=== PATIENT | female | born 1940 | race Caucasian/White ===

== ENCOUNTER 2017-06-11 15:00 | Inpatient (IN) | payer MEDICARE, BC ==
[2017-06-19] MEDS ORDERED: METOCLOPRAMIDE 10 MG TABLET PO ONE (14:00)
[2017-06-19] MEDS ORDERED: MECLIZINE 25 MG TABLET PO ONE (14:00)
[2017-06-19] MEDS ORDERED: FAMOTIDINE 20MG TABLET PO ONE (14:00)
[2017-06-19] MEDS ORDERED: ACETAMINOPHEN 1,000 MG/100 ML BTL IV ONE (14:00)
[2017-06-19] MEDS ORDERED: CEFAZOLIN 2 Gram 2 GM/50 ML BAG IVPB ONE (14:00)
[2017-06-20] MEDS ORDERED: ACETAMINOPHEN 1,000 MG/100 ML BTL IV ONE (06:00)
[2017-06-20] MEDS ORDERED: FAMOTIDINE 20MG TABLET PO ONE (06:00)
[2017-06-20] MEDS ORDERED: MECLIZINE 25 MG TABLET PO ONE (06:00)
[2017-06-20] MEDS ORDERED: METOCLOPRAMIDE 10 MG TABLET PO ONE (06:00)
[2017-06-20] MEDS ORDERED: CEFAZOLIN 2 Gram 2 GM/50 ML BAG IVPB ONE (06:00)
[2017-06-20] MEDS ORDERED: AL HYDROX/MAG HYDROX 30ML UD PO PRN (14:00)
[2017-06-20] MEDS ORDERED: DIPHENHYDRAMINE HCL 25 MG CAPSULE PO PRN (14:00)
[2017-06-20] MEDS ORDERED: SENNOSIDES/DOCUSATE SODIUM UD CAPSULE PO PRN (14:00)
[2017-06-20] MEDS ORDERED: MAGNESIUM HYDROXIDE 30 ML UDC PO PRN (14:00)
[2017-06-20] MEDS ORDERED: PROMETHAZINE HCL 12.5 MG in 0.9 % SODIUM CHLORIDE 100ML 100 ML IVPB PRN (14:00)
[2017-06-20] MEDS ORDERED: ZOLPIDEM TARTRATE 5 MG TABLET PO PRN (14:00)
--- NOTE | 2017-06-20 14:51 | Rehab Evaluation ---
Patient Information - Patient Information Diagnosis: L Knee OA Ordered Treatment: PT Evaluate and Treat Status: Initial Evaluation Surgery: Yes (L Knee TKA) Date of Surgery: 06/20/17 History: Detail (Pt. lives alone in an apartment and she reports that she does not have to use stairs. The pt. has a front wheeled walker. The pt. has a handicap accessible bathroom with walk in shower and raised toilet seat/grab bars.) Past Med/Nasim Hx Detail: Detail (Pt. reports her hips and right knee are pain free. Pt. reports no complications medically, aside from L TKA.) Past Medical/Surgical Hx: PAST MEDICAL/SURGICAL HISTORY Past Surgical History hysterectomy; bilat carpal tunnel release; left knee scopes x2; colonoscopy x2. PMH - Respiratory Hx Respiratory Disorders No PMH - Cardiovascular Hx Cardiovascular Disorders No Exercise Tolerance Good Comment: walks dog"edilia" qd PMH - Neuro Hx Neurological Disorders No PMH - GI Hx Gastrointestinal Disorders Yes Hx Diverticulitis Yes: diverticulosis Hx Gastroesophageal Reflux Yes Hx Weight Loss/Weight Gain Yes: gain 8 lb/1year PMH - Hx Genitourinary Disorders Yes Hx Bladder Problem Yes: urgency at times PMH - Endocrine Hx Endocrine Disorders No PMH - Musculoskeletal Hx Musculoskeletal Disorders Yes Hx Arthritis Yes: osteoarthritis left knee Hx Osteoporosis Yes PMH - Psych Hx Psychiatric Problems No PMH - Hematology/Oncology Hx Hematology/Oncology No Disorders Premorbid Status: Detail (Slowly progressive worsening of sx.) Social History: Detail (Pt. lives alone and hopes to stay at [facility] for swingbed program.) Precautions: [place], Fall - Time With Patient Total Time Spent With Patient (Min): 50 Treatment Procedures: Detail (Physical Therapy Evaluation Completed. Pt. was left supine with call light available, CPM LLE, B IPC, nursing was notified of pt.'s status.) Subjective Information - Subjective Information Per Patient (Pt. denies pain/nausea. She does express fatigue and drowziness. Pt. reported 2/10 pain at start of tx.) Objective Data - Pain Pain Present: Yes Pain Scale Used: Numeric (1 - 10) - Mental Status Patient Orientation: Oriented x3 - Visual Perception Appears within normal limits for therapeutic activities - ROM Other (CPM set at 0-60 degrees for left knee) - Strength/Tone Not within normal limits (RLE functional with sit to stand and stand to sit transfer. Pt. able to hook operative LE with contralateral side. Bilateral UE 5/ 5 break testing for biceps, triceps, shoulder flexion and abduction.) - Coordination Appears within normal limits for therapeutic activities - Bed Mobility Needs Assist (Pt. required moderate assistance with transitioning from supine to head of bed.) - Transfers Needs Assist (Pt. required min assist x1 with sit to stand and stand to sit transfer.) - Balance Balance Sitting: Good Balance Standing: Good - Sensation Intact - Gait Detail (Pt. ambulated ~5 feet to commode with min assist x1 using front wheeled walker.) - ADL's/IADL's Detail (Pt. stood upright and independently doffed her undergarment.) - Special Tests No Therapy Assessment - Therapy Assessment Detail (Considering the pt.'s age and social history she is an appropriate candidate for transition to swingbed stay at [facility] until PT goals met for safe D/ C home.) Patient Education - Patient Education Teaching Topic: Equipment Use, Precautions Response: Verbalize Understanding Teaching Method: Discussion Teaching Recipient: Patient Barriers To Learning: None Problem List - Problem List Physical Therapy Problem List: Detail (1) LE ROM restriction 2) Assistance required with bed mobility and transfer 3) LE weakness 4) Unsteadiness with ambulation 5) verbal and tactile cues required with bed mobility and transfer.) Goals - Goals Physical Therapy Goals: 1) Pt. will be independent with bed mobility and transfer. 2) Pt. will be independent with HEP. 3) Pt. will verbalize understanding of precautions and LE positioning. 4) Pt. will independently ambulate household distances with front wheeled walker without difficulty. 5) Pt. will exhibit good standing balance. Prognosis - Prognosis Good Plan - Plan Physical Therapy Plan: Pt. is to be seen 1-2x per day for inpatient physical therapy and be reassessed for transition to [facility] or home environment following inpatient stay.
[2017-06-20] MEDS ORDERED: TRANEXAMIC ACID 1,000 MG in 0.9 % SODIUM CHLORIDE 100ML 100 ML IVPB ONE (15:00)
[2017-06-20] MEDS ORDERED: FENTANYL PF 100MCG/2ML VIAL IV ONE (15:08)
[2017-06-20] MEDS ORDERED: PROPOFOL 10 MG/ML VIAL IV ONE (15:08)
[2017-06-20] MEDS ORDERED: TRANEXAMIC ACID 1,000 MG/10 ML ML IV ONE (15:08)
[2017-06-20] MEDS ORDERED: BUPIVACAINE 0.25% W/EPI MPF 30ML VIAL IVP ONE (15:08)
[2017-06-20] MEDS ORDERED: DIPHENHYDRAMINE HCL IV 50 MG/ML VIAL IVP ONE (15:08)
[2017-06-20] MEDS ORDERED: LIDOCAINE 2% MDV (20MG/ML) 20ML VIAL IV ONE (15:08)
[2017-06-20] MEDS ORDERED: BUPIVACAINE LIPOSOME 266MG/20ML VIAL IV ONE (15:08)
[2017-06-20] MEDS ORDERED: MIDAZOLAM HCL 2MG/2ML VIAL IV ONE (15:08)
[2017-06-20] MEDS: RINGERS SOLUTION,LACTATED 1,000 ML IV SCH (15:28)
[2017-06-20] MEDS: OXYCODONE HCL 5 MG TABLET PO PRN (15:31)
[2017-06-20] MEDS: ONDANSETRON HCL IV 4 MG/2 ML VIAL IVP PRN ×2 (16:04→21:53)
[2017-06-20] MEDS: ACETAMINOPHEN 1,000 MG/100 ML BTL IV SCH ×2 (16:04→22:58)
[2017-06-20] MEDS: PATIENT OWN MED: OMEPRAZOLE 20 MG PO SCH (16:13)
[2017-06-20] MEDS: HYDROMORPHONE HCL 1 MG/ML CPJ IVP PRN ×2 (17:17→21:45)
[2017-06-20] MEDS: [UNRECOGNIZED DRUG - OTHER] OPTH SCH ×2 (17:19→21:39)
[2017-06-20] MEDS: CEFAZOLIN 2 Gram 2 GM/50 ML BAG IVPB SCH (18:06)
[2017-06-20] MEDS: ASPIRIN 325 MG TAB ENTERIC-COATED PO SCH (21:38)
[2017-06-20] MEDS: PATIENT OWN MED: LOVASTATIN 40 MG PO SCH (21:39)
[2017-06-21] MEDS: OXYCODONE HCL 5 MG TABLET PO PRN ×4 (00:17→11:20)
[2017-06-21] MEDS: CEFAZOLIN 2 Gram 2 GM/50 ML BAG IVPB SCH ×2 (03:17→11:05)
[2017-06-21] MEDS: ACETAMINOPHEN 1,000 MG/100 ML BTL IV SCH (03:56)
[2017-06-21] MEDS: ONDANSETRON HCL IV 4 MG/2 ML VIAL IVP PRN (04:06)
[2017-06-21 06:22] LABS: HEMATOCRIT 35.3 % (35.0-47.0); HEMOGLOBIN 12.1 gm/dl (11.6-16.0); MEAN CELL VOLUME 94.1 fl (81-97); MEAN CORPUSCULAR HGB CONC 34.3 g/dl (32-36); MEAN PLATELET VOLUME 10.6 fl (7.4-10.4); PLATELET COUNT 295 K/uL (130-400); RED BLOOD COUNT 3.75 M/uL (3.80-5.40); RED CELL DISTRIBUTION WIDTH 12.1 % (11.5-14.5); WHITE BLOOD COUNT W/O DIFF 7.7 K/uL (4.2-12.2)
[2017-06-21 06:24] LABS: MEAN CORPUSCULAR HEMOGLOBIN 32.2 pg (27-33)
[2017-06-21] MEDS: RINGERS SOLUTION,LACTATED 1,000 ML IV SCH (06:57)
[2017-06-21] MEDS: PATIENT OWN MED: OMEPRAZOLE 20 MG PO SCH ×3 (07:35→15:34)
[2017-06-21] MEDS: CITRUCEL PO SCH (11:03)
[2017-06-21] MEDS: ASPIRIN 325 MG TAB ENTERIC-COATED PO SCH ×2 (11:03→22:13)
[2017-06-21] MEDS: PATIENT OWN MED: CETIRIZINE 10 MG PO SCH (11:04)
[2017-06-21] MEDS: [UNRECOGNIZED DRUG - OTHER] OPTH SCH ×4 (11:04→22:14)
--- NOTE | 2017-06-21 11:39 | Physical Therapy Tx Note ---
Physical Therapy Tx Note - Treatment Note Tolerated: Good (Patient doing very well this am and slept fairly well except bar under CPM dug into leg all night. Some pain but did well with gait with FWW , WBAT left into ann about 50 feet, to bathroom and back to bed.) Total Time Spent With Patient: 30 Physical Therapy Tx Note: Detail (Patient seen bedside, back in bed secondary to knee achy sitting up in chair but also notes that CPM bothering her leg as well. Re-adjusted some of straps to "sling" leg better so no pressure on back of thigh,calf. Removed CPM then from bed, cryocuff from leg and compressive stockings. Patient able to perform exercises with assist of heel slide, quad sets, SLR and ankle pumps then supine to sit with min assist and trapeze for left LE, sit to stand with CGA with FWW and ambulated to bathroom with CGA, able to use toilet independently then stood and assisted with pulling together clothing. Patient able to wash hands independently then ambulated in ann about 50 feet with FWW and WBAT, CGA then back to bed. Min assist into bed then re- attached cryocuff, compressive stockings, CPM machine and made sure not aggravating back of leg. Tray table close and call light handy.) Physical Therapy Problem List: Detail (1) LE ROM restriction 2) Assistance required with bed mobility and transfer 3) LE weakness 4) Unsteadiness with ambulation 5) verbal and tactile cues required with bed mobility and transfer.) Physical Therapy Goals: 1) Pt. will be independent with bed mobility and transfer. 2) Pt. will be independent with HEP. 3) Pt. will verbalize understanding of precautions and LE positioning. 4) Pt. will independently ambulate household distances with front wheeled walker without difficulty. 5) Pt. will exhibit good standing balance. Prognosis: Good (Patient did very well but lives alone so not sure could care for self at this point. Approved for Swing bed to rehab fully before home.) Physical Therapy Plan: Pt. is to be seen 1-2x per day for inpatient physical therapy and be reassessed for transition to [facility] or home environment following inpatient stay.
[2017-06-21] MEDS ORDERED: HYDROCODONE/APAP 5/325MG TABLET PO PRN ×2 (13:54)
[2017-06-21] MEDS ORDERED: OXYCODONE HCL/APAP 5MG/325MG TABLET PO PRN (13:54)
[2017-06-21] MEDS ORDERED: ACETAMINOPHEN 325 MG TAB PO PRN (14:00)
--- NOTE | 2017-06-21 14:24 | Rehab Evaluation ---
Patient Information - Patient Information Diagnosis: L Knee OA Ordered Treatment: OT Evaluate and Treat Status: Initial Evaluation Surgery: Yes (L Knee TKA) Date of Surgery: 06/20/17 Past Med/Nasim Hx Detail: Detail (Pt. reports her hips and right knee are pain free. Pt. reports no complications medically, aside from L TKA.) Past Medical/Surgical Hx: PAST MEDICAL/SURGICAL HISTORY Past Surgical History hysterectomy; bilat carpal tunnel release; left knee scopes x2; colonoscopy x2. PMH - Respiratory Hx Respiratory Disorders No PMH - Cardiovascular Hx Cardiovascular Disorders No Exercise Tolerance Good Comment: walks dog"edilia" qd PMH - Neuro Hx Neurological Disorders No PMH - GI Hx Gastrointestinal Disorders Yes Hx Diverticulitis Yes: diverticulosis Hx Gastroesophageal Reflux Yes Hx Weight Loss/Weight Gain Yes: gain 8 lb/1year PMH - Hx Genitourinary Disorders Yes Hx Bladder Problem Yes: urgency at times PMH - Endocrine Hx Endocrine Disorders No PMH - Musculoskeletal Hx Musculoskeletal Disorders Yes Hx Arthritis Yes: osteoarthritis left knee Hx Osteoporosis Yes PMH - Psych Hx Psychiatric Problems No PMH - Hematology/Oncology Hx Hematology/Oncology No Disorders Premorbid Status: Detail (Pt reports she lives alone in a 2nd floor apartment, she has an elevator. She has a walk in shower with an emergency pull cord and grab bars and she usually stands to shower. She has an elevated toilet seat without grab bars, she also has a commode but it is too tall for her. Prior to surgery she was Ind with all ADLs and IADLs as well as driving. She was ambulatory without an assistive device. She has a 2 wheeled walker.) Social History: Detail (Pt. lives alone and hopes to stay at [facility] for swingbed program.) Precautions: [place], Fall - Time With Patient Total Time Spent With Patient (Min): 30 Treatment Procedures: Detail (OT eval low complexity) Subjective Information - Subjective Information Per Patient Objective Data - Pain Pain Present: Yes (7-8/10 in the left knee) - Mental Status Patient Orientation: Oriented x3 - Visual Perception Appears within normal limits for therapeutic activities (Pt wears glasses at all times.) - ROM Within normal limits (Raman UE AROM WNL) - Strength/Tone Within normal limits (Raman UE MMT 4+/5) - Coordination Appears within normal limits for therapeutic activities - Bed Mobility Needs Assist (Not formally assessed per pt request as she just got back to bed.) - Sensation Intact - Gait Detail (Not assessed at this time.) - ADL's/IADL's Detail (Pt reports she is toileting with assist from nursing. Other ADLs will be assessed.) Therapy Assessment - Therapy Assessment Detail (Pt presents with decreased Ind with ADLs needed for safe return home.) Problem List - Problem List Physical Therapy Problem List: Detail (1) LE ROM restriction 2) Assistance required with bed mobility and transfer 3) LE weakness 4) Unsteadiness with ambulation 5) verbal and tactile cues required with bed mobility and transfer.) Occupational Therapy Problem List: Detail (1. Decreased Ind with dressing and showering. 2. Decreased Ind with functional mobility needed for safe and Ind ADLs.) Goals - Goals Physical Therapy Goals: 1) Pt. will be independent with bed mobility and transfer. 2) Pt. will be independent with HEP. 3) Pt. will verbalize understanding of precautions and LE positioning. 4) Pt. will independently ambulate household distances with front wheeled walker without difficulty. 5) Pt. will exhibit good standing balance. Occupational Therapy Goals: 1. Pt will be Ind with total body dressing 2. Pt will be Ind with showering 3. Pt will be Ind with all functional mobility needed for safe and Ind ADLs. Prognosis - Prognosis Good Plan - Plan Physical Therapy Plan: Pt. is to be seen 1-2x per day for inpatient physical therapy and be reassessed for transition to [facility] or home environment following inpatient stay. Occupational Therapy Plan: OT 2-4 days per week. Pt planning to admit to swing bed to allow safe and Ind return home.
[2017-06-21] MEDS: OXYCODONE HCL/APAP 5MG/325MG TABLET PO PRN (15:22)
--- NOTE | 2017-06-21 16:59 | Physical Therapy Tx Note ---
Physical Therapy Tx Note - Treatment Note Tolerated: Fair Total Time Spent With Patient: 20 Physical Therapy Tx Note: Detail (Patient states 7-8/10 pain in left knee. Patient was exiting bathroom with SKIN CARE TECHNICIAN when WORK CAR OPERATOR arrived. Patient ambulated 50 feet with wheeled walker SBA x1. Patient transferred stand to sit CGA x1. Patient performed the following exercises x10 reps each: seated hip flexion, quad sets, seated heel raises, and seated toe raises. Patient transferred sit to and from stand CGA x1. Patient transferred sit to supine min assist x1 to pivot LEs onto bed. Patient declined further exercises due to nausea and dizziness. Patient was left reclined in bed with CPM, intermittent pneumatic compression, cyro, and call light within reach.) Physical Therapy Problem List: Detail (1) LE ROM restriction 2) Assistance required with bed mobility and transfer 3) LE weakness 4) Unsteadiness with ambulation 5) verbal and tactile cues required with bed mobility and transfer.) Physical Therapy Goals: 1) Pt. will be independent with bed mobility and transfer. 2) Pt. will be independent with HEP. 3) Pt. will verbalize understanding of precautions and LE positioning. 4) Pt. will independently ambulate household distances with front wheeled walker without difficulty. 5) Pt. will exhibit good standing balance. Prognosis: Good Physical Therapy Plan: Pt. is to be seen 1-2x per day for inpatient physical therapy and be reassessed for transition to [facility] or home environment following inpatient stay.
[2017-06-21] MEDS: PATIENT OWN MED: LOVASTATIN 40 MG PO SCH (22:13)
[2017-06-22] MEDS: RINGERS SOLUTION,LACTATED 1,000 ML IV SCH (03:13)
[2017-06-22] MEDS: OXYCODONE HCL/APAP 5MG/325MG TABLET PO PRN (03:20)
[2017-06-22 06:14] LABS: HEMATOCRIT 34.7 % (35.0-47.0); HEMOGLOBIN 12.1 gm/dl (11.6-16.0); MEAN CORPUSCULAR HGB CONC 34.9 g/dl (32-36); MEAN PLATELET VOLUME 10.5 fl (7.4-10.4); PLATELET COUNT 299 K/uL (130-400); RED BLOOD COUNT 3.69 M/uL (3.80-5.40); RED CELL DISTRIBUTION WIDTH 12.4 % (11.5-14.5); WHITE BLOOD COUNT W/O DIFF 7.5 K/uL (4.2-12.2)
[2017-06-22 06:15] LABS: MEAN CORPUSCULAR HEMOGLOBIN 32.7 pg (27-33)
[2017-06-22] MEDS: PATIENT OWN MED: OMEPRAZOLE 20 MG PO SCH ×2 (07:15→16:36)
[2017-06-22] MEDS: ASPIRIN 325 MG TAB ENTERIC-COATED PO SCH ×2 (09:46→21:57)
[2017-06-22] MEDS: PATIENT OWN MED: CETIRIZINE 10 MG PO SCH (09:48)
[2017-06-22] MEDS: CITRUCEL PO SCH (09:49)
[2017-06-22] MEDS: [UNRECOGNIZED DRUG - OTHER] OPTH SCH ×4 (09:49→22:57)
--- NOTE | 2017-06-22 12:44 | Physical Therapy Tx Note ---
Physical Therapy Tx Note - Treatment Note Tolerated: Good Total Time Spent With Patient: 40 Physical Therapy Tx Note: Detail (Pt was resting in bed upon arrival with CPM attached and set at 0 degrees extension, and 60 degrees of knee flexion. Pt states knee is stiff and sore. Pt transferred with min assist x 1 from supine to sit, Sit to stand was independent, Pt ambulated 150 ft. with front wheeled walker, Pt completed ex's of quad sets, HS sets, glute sets, ankle pumps, heel slides all x 10 each. Pt transferred back to bed with min to mod assist x 1 due to fatigue and weakness of Left knee and lower extremity. Pt was returned to CPM with Rom increased to 65 degrees of flexion as pt. tolerated. Pt was given nurses call button, bedside table. ICe placed to pt. knee as requested and compression garments were reattached.) Physical Therapy Problem List: Detail (1) LE ROM restriction 2) Assistance required with bed mobility and transfer 3) LE weakness 4) Unsteadiness with ambulation 5) verbal and tactile cues required with bed mobility and transfer.) Physical Therapy Goals: 1) Pt. will be independent with bed mobility and transfer. 2) Pt. will be independent with HEP. 3) Pt. will verbalize understanding of precautions and LE positioning. 4) Pt. will independently ambulate household distances with front wheeled walker without difficulty. 5) Pt. will exhibit good standing balance. Prognosis: Good Physical Therapy Plan: Pt. is to be seen 1-2x per day for inpatient physical therapy and be reassessed for transition to [facility] or home environment following inpatient stay.
--- NOTE | 2017-06-22 16:22 | Physical Therapy Tx Note ---
Physical Therapy Tx Note - Treatment Note Tolerated: Good Total Time Spent With Patient: 40 Physical Therapy Tx Note: Detail (Pt. was supine in bed upon arrival but stated that she had just returned to bed after using the bathroom. Pt was eager to do Physical THerapy. Pt requires min assist x 1 to lift leg out of CPM. All other transfers are independent to min assist. Bed mobility is good. Pt was able to ambulate 250 ft. with front wheeled walker with contact gaurd assist. Pt was able to complete ex's of supine, glute sets, quad sets, heel slides, ankle pumps x 10 each. standing hs curls, standing hip abduction, and standing marching as well as seated marching, all x 10 each and bilateral. Pt completed 5 sit to stands from edge of bed. Pt returned to bed with transfers independent. Reattached ice pack as well as CPM. Pt was given call button and bed side table. Pt vannessa ex's well but does find standing on the surgical leg difficult and sore. Pt to be seen x 2 visits tomorrow, then plan to transition into swing bed.) Physical Therapy Problem List: Detail (1) LE ROM restriction 2) Assistance required with bed mobility and transfer 3) LE weakness 4) Unsteadiness with ambulation 5) verbal and tactile cues required with bed mobility and transfer.) Physical Therapy Goals: 1) Pt. will be independent with bed mobility and transfer. 2) Pt. will be independent with HEP. 3) Pt. will verbalize understanding of precautions and LE positioning. 4) Pt. will independently ambulate household distances with front wheeled walker without difficulty. 5) Pt. will exhibit good standing balance. Prognosis: Good Physical Therapy Plan: Pt. is to be seen 1-2x per day for inpatient physical therapy and be reassessed for transition to [facility] or home environment following inpatient stay.
[2017-06-22] MEDS: PATIENT OWN MED: LOVASTATIN 40 MG PO SCH (22:56)
[2017-06-23] MEDS: PATIENT OWN MED: OMEPRAZOLE 20 MG PO SCH (06:18)
[2017-06-23 06:24] LABS: HEMOGLOBIN 11.1 gm/dl (11.6-16.0); MEAN CELL VOLUME 95.4 fl (81-97); MEAN CORPUSCULAR HGB CONC 33.6 g/dl (32-36); MEAN PLATELET VOLUME 10.8 fl (7.4-10.4); PLATELET COUNT 300 K/uL (130-400); RED BLOOD COUNT 3.46 M/uL (3.80-5.40); RED CELL DISTRIBUTION WIDTH 12.5 % (11.5-14.5); WHITE BLOOD COUNT W/O DIFF 5.7 K/uL (4.2-12.2)
[2017-06-23] MEDS: ASPIRIN 325 MG TAB ENTERIC-COATED PO SCH (09:46)
[2017-06-23] MEDS: PATIENT OWN MED: CETIRIZINE 10 MG PO SCH (09:47)
[2017-06-23] MEDS: CITRUCEL PO SCH (09:48)
[2017-06-23] MEDS: [UNRECOGNIZED DRUG - OTHER] OPTH SCH (09:49)
--- NOTE | 2017-06-23 10:17 | Physical Therapy Tx Note ---
Physical Therapy Tx Note - Treatment Note Tolerated: Good Total Time Spent With Patient: 30 Physical Therapy Tx Note: Detail (Pt was sitting upright in recliner with legs elevated. Pt required min assist to lower legs but able to transfer independently throughout rest of treatment including repositioning in recliner and elevating legs. Pt ambulated with front wheeled walker 350 ft. with one rest period in [facility]. During seated time completed ex's of LAQ, glute sets, quad sets, and marching. Pt was able to descend and ascend stairs with railing and walker for assistance. Contact guard with all treatment. Pt states pain is minimal and controlled with meds. Pt states slept better last night after removing CPM. Pt vannessa well and making good progress with treatment.) Physical Therapy Problem List: Detail (1) LE ROM restriction 2) Assistance required with bed mobility and transfer 3) LE weakness 4) Unsteadiness with ambulation 5) verbal and tactile cues required with bed mobility and transfer.) Physical Therapy Goals: 1) Pt. will be independent with bed mobility and transfer. 2) Pt. will be independent with HEP. 3) Pt. will verbalize understanding of precautions and LE positioning. 4) Pt. will independently ambulate household distances with front wheeled walker without difficulty. 5) Pt. will exhibit good standing balance. Prognosis: Good Physical Therapy Plan: Pt. is to be seen 1-2x per day for inpatient physical therapy and be reassessed for transition to [facility] or home environment following inpatient stay.
--- NOTE | 2017-06-23 13:19 | Physical Therapy Tx Note ---
Physical Therapy Tx Note - Treatment Note Tolerated: Good Total Time Spent With Patient: 35 Physical Therapy Tx Note: Detail (Pt was sitting reclined in chair upon arrival with legs elevated. Pt was able to right chair and sit to stand independently. Pt ambulated 375 ft. with front wheeled walker with contact guard assist. Pt completed ex's of standing marching, standing hamstring curls, standing toe raises, heel raises, standing hip abduction all x 10 each bilateral. seated marching and seated LAQ x 10 each bilateral. Pt was able to return to chair independently and recline chair to elevate legs. Pt was given ice to left knee and call light for nursing. Pt to be discharged from inpatient at this time and transfer to [facility] this p.m. per Dr. perkins.) Physical Therapy Problem List: Detail (1) LE ROM restriction 2) Assistance required with bed mobility and transfer 3) LE weakness 4) Unsteadiness with ambulation 5) verbal and tactile cues required with bed mobility and transfer.) Physical Therapy Goals: 1) Pt. will be independent with bed mobility and transfer. 2) Pt. will be independent with HEP. 3) Pt. will verbalize understanding of precautions and LE positioning. 4) Pt. will independently ambulate household distances with front wheeled walker without difficulty. 5) Pt. will exhibit good standing balance. Prognosis: Good Physical Therapy Plan: Pt. is to be seen 1-2x per day for inpatient physical therapy and be reassessed for transition to [facility] or home environment following inpatient stay.
--- NOTE | 2017-06-25 17:31 | Operative Note ---
DATE OF SURGERY: 06/20/2017 Surgeon: Augustus Pham DO Referring physician: Divya Lehman MD PREOPERATIVE DIAGNOSIS: Primary osteoarthritis of the left knee. POSTOPERATIVE DIAGNOSIS: Primary osteoarthritis of the left knee. OPERATION: Left total knee arthroplasty. Anesthesia: General. PROCEDURE: This 76-year-old female was taken to the operating room and placed in the supine position on the operating room table. Spinal anesthesia was induced by the Department of Anesthesia. The left lower extremity was then elevated and prepped with Hibiclens and draped in the usual sterile fashion. It was exsanguinated and the tourniquet inflated to 300 mmHg. An anterior longitudinal midline incision was made, followed by a medial parapatellar arthrotomy incision. The intracondylar drill hole was made for the intramedullary alignment david and the cutting block was then pinned at a 10 mm cut at the 5 degree valgus and because of the patient's mild extensor contracture. The sizing jig was then affixed. A size 60 was seen to be the appropriate size in the medial lateral direction, but a 62.5 in the anterior posterior dimension, therefore we moved the cutting blocks 2 mm anteriorly and pinned it in 30 degrees of external rotation, the appropriate cuts were made. The wafers of bone were removed. We then directed our attention to the proximal tibia. An extramedullary alignment guide was used to cut the proximal tibia, referencing a 10 mm cut off the lateral tibial plateau, and after the appropriate alignment had been assured, we discovered that the 10 mm cut was not going to get below the subchondral bone, therefore an additional 2 mm was taken and the 3 degree posterior slope cut was made. The wafer of bone was removed. Remnants of the menisci and osteophytes were removed from the posterior aspect of the joint. The tibial surface was sized to a size 71 and the stem punch was used. The trial components inserted. The patella cut and restored to its anatomic height with a 34 x 7.8 mm trial and the knee was taken through range of motion with excellent stability of the components being identified. All trial components were then removed and the wound copiously irrigated with pulse lavage lactated Ringer's solution. All bony surfaces were dried and all components were cemented and excess cement removed after the insertion of each component. Exparel had been injected into the posterior, medial, and lateral corners of the joint and at the completion of the procedure with all components in place, the remainder of the Exparel was injected into the periosteum and joint capsule, the proximal tibia, and distal femur. Initially we cemented the tibial base plate, followed by insertion of the tibial bearings, femoral component, and finally the patella. Once the cement had hardened, the knee was again taken through range of motion and found to be stable. A drain was placed through a separate stab incision and the arthrotomy incision was closed with a 2 Vicryl, the subcutaneous tissue closed with 0 Vicryl and the skin was stapled. Sterile dressings applied with a Polar Care and the patient taken to the recovery room in satisfactory condition. GROSS PATHOLOGY: This patient demonstrated very severe medial compartment osteoarthritis, full-thickness articular cartilage loss noted the entire surface of the medial femoral condyle, and to a lesser degree on the tibial plateau. The lateral compartment demonstrated grade 2 changes and the patellofemoral joint showed severe full-thickness loss at the articulating surface. The final components inserted were: A [employer] Vanguard size 60 cruciate retaining femoral component, 71 tibia base plate, a 12 mm anterior stabilized bearing, and a 34 x 7.8 mm patella was used. YVETTE
--- NOTE | 2017-06-25 17:50 | Discharge Summary ---
DATE OF ADMISSION: 06/20/2017 DATE OF DISCHARGE: 06/23/2017 ADMITTING DIAGNOSIS: Osteoarthritis of the left knee. DISCHARGE DIAGNOSIS: Osteoarthritis of the left knee. OPERATIVE PROCEDURE: Elective left total knee arthroplasty. This 76-year-old female was admitted to the hospital for total knee arthroplasty and tolerated the operative procedure well. Because of slow progress with physical therapy, it was necessary for her to enter the Swing Bed Program. The patient did not show any evidence of DVT. Her pain was controlled, and she was ready to be discharged. The patient will follow up in the clinic on 07/04/2017. She will continue her aspirin 325 mg every 12 hours until that time. Should she have any problems prior to being seen, she was instructed to call my office. YVETTE
== END 2017-06-23 13:24 | disposition swing bed (61) | DRG 470 ==
LOC: MEDSURG 06-20 09:25
PROVIDERS: ADMIT Orthopaedic Surgery; ATTEND Orthopaedic Surgery
PROC: 0SRD0J9 Replacement of Left Knee Joint with Synthetic Substitute, Cemented, Open Approach (ICD-10-PCS; principal; 2017-06-20 11:00)
DX: M17.12 Unilateral primary osteoarthritis, left knee (principal); E78.00 Pure hypercholesterolemia, unspecified
CPT/HCPCS: 85025; 97110; 97116; 97165; J1170; J1200; J2405

== ENCOUNTER 2017-06-23 13:40 | Inpatient (IN) | payer MEDICARE, BC ==
[2017-06-23] MEDS ORDERED: AL HYDROX/MAG HYDROX 30ML UD PO PRN (13:41)
[2017-06-23] MEDS ORDERED: MAGNESIUM HYDROXIDE 30 ML UDC PO PRN (13:42)
[2017-06-23] MEDS ORDERED: HYDROCODONE/APAP 5/325MG TABLET PO PRN (13:43)
[2017-06-23] MEDS ORDERED: SENNOSIDES/DOCUSATE SODIUM UD CAPSULE PO PRN (14:04)
[2017-06-23] MEDS ORDERED: ACETAMINOPHEN 325 MG TAB PO PRN (14:05)
[2017-06-23] MEDS: OMEPRAZOLE 20 MG PO SCH (16:13)
[2017-06-23] MEDS: SYSTANE OPTH OPTH SCH ×2 (17:53→22:28)
[2017-06-23] MEDS ORDERED: ZOLPIDEM TARTRATE 5 MG TABLET PO PRN (22:00)
[2017-06-23] MEDS: HYDROCODONE/APAP 5/325MG TABLET PO PRN (22:27)
[2017-06-23] MEDS: ASPIRIN 325 MG TAB ENTERIC-COATED PO SCH (22:28)
[2017-06-23] MEDS: LOVASTATIN 40 MG PO SCH (22:28)
[2017-06-24] MEDS: OMEPRAZOLE 20 MG PO SCH ×2 (06:31→16:23)
[2017-06-24] MEDS: MULTIVITAMINS/MINERALS TABLET PO SCH (10:39)
--- NOTE | 2017-06-24 10:39 | Rehab Evaluation ---
Patient Information - Patient Information Diagnosis: Left TKA Ordered Treatment: OT Evaluate and Treat Status: Initial Evaluation Surgery: Yes (Left TKA) Date of Surgery: 06/20/17 Past Medical/Surgical Hx: PAST MEDICAL/SURGICAL HISTORY Past Surgical History hysterectomy; bilat carpal tunnel release; left knee scopes x2; colonoscopy x2. PMH - Respiratory Hx Respiratory Disorders No PMH - Cardiovascular Hx Cardiovascular Disorders No Comment: walks dog"edilia" qd PMH - Neuro Hx Neurological Disorders No PMH - GI Hx Gastrointestinal Disorders Yes Hx Diverticulitis Yes: diverticulosis Hx Gastroesophageal Reflux Yes Hx Weight Loss/Weight Gain Yes: gain 8 lb/1year PMH - Hx Genitourinary Disorders Yes Hx Bladder Problem Yes: urgency at times PMH - Endocrine Hx Endocrine Disorders No PMH - Musculoskeletal Hx Musculoskeletal Disorders Yes Hx Arthritis Yes: osteoarthritis left knee Hx Osteoporosis Yes PMH - Psych Hx Psychiatric Problems No PMH - Hematology/Oncology Hx Hematology/Oncology No Disorders Premorbid Status: Detail (Pt lives alone in a 2nd floor apartment with an elevator. She has a walk in shower with an emergency pull cord as well as grab bars and she usually stands to shower. She has an elevated toilet seat, no grab bars. She was Ind with all ADLs and IADLS as well as driving. Pt was ambulating without an assistive device. She has a 2 wheeled walker.) Precautions: [place], Fall - Time With Patient Total Time Spent With Patient (Min): 45 Treatment Procedures: Detail (OT eval low complexity) Subjective Information - Subjective Information Per Patient Objective Data - Pain Pain Present: Yes (mild left knee pain) - Mental Status Patient Orientation: Oriented x3 - Visual Perception Appears within normal limits for therapeutic activities (Pt wears glasses at all times.) - ROM Within normal limits (Raman UE AROM WNL) - Strength/Tone Within normal limits (Raman UE MMT 4+/5) - Coordination Appears within normal limits for therapeutic activities - Bed Mobility Independent - Transfers Independent (Ind with sit to stand from multiple surfaces using walker.) - Balance Balance Sitting: Good Balance Standing: Good - Sensation Intact - Gait Detail (Pt ambulating in the room with 2 wheeled walker Indly.) - ADL's/IADL's Detail (Pt able to demonstrate Ind with showering in standing (pt using grab bars as needed), Ind with total body dressing using modified dressing technique , Ind with all grooming/hygiene tasks at sink.) Therapy Assessment - Therapy Assessment Detail (Pt demonstrated Ind with showering in standing, total body dressing, grooming/hygiene and functional mobility needed for ADLs. Will further assess IADLs.) Problem List - Problem List Occupational Therapy Problem List: Detail (1. Decreased Ind with IADLs (meal prep, home mgmt)) Goals - Goals Occupational Therapy Goals: 1. Pt will demonstrate Ind with simulated IADLs. Prognosis - Prognosis Good Plan - Plan Occupational Therapy Plan: OT 1-2 visits to assess IADLs.
[2017-06-24] MEDS: SYSTANE OPTH OPTH SCH ×4 (10:40→22:21)
[2017-06-24] MEDS: ASPIRIN 325 MG TAB ENTERIC-COATED PO SCH ×2 (10:40→22:21)
[2017-06-24] MEDS: CETIRIZINE 10 MG PO SCH (10:40)
[2017-06-24] MEDS: CHOLECALCIFEROL 1,000 UNIT TABLET PO SCH (10:40)
[2017-06-24] MEDS: CITRUCEL FIBER PO SCH (10:40)
--- NOTE | 2017-06-24 11:02 | History & Physical ---
History of Present Illness - Date Date of Service for History & Physical: 06/24/17 - History of Present Illness Admitting Diagnosis: deconditioning due to total left knee replacement History of Present Illness: 76yo female with admitted to [facility] for weakness related to recent left TKA done on 06/20/[address] Pham. She has history of osteoarthritis, allergies , high cholesterol. Patient underwent left TKA oon 06/20/17. Operative and post-operative courses were uncomplicated. Her pain has been very well controlled. she is not taking any pain medications during the day but at night has taken 1 norco. She has been up with PT/oT and done very well. she is still needing some assistance with ADL's. She lives alone in a second story apartment but has an elevator in her complex. 06/24/17- patient states she is feeling well. she is very hopeful to get home early this week. her daughter is in town from the [facility] to help her make the transition home when she is ready. General - Cognitive Patterns Orientation: Oriented x3 - Communication Preferred Language?: Chinese Cell Preparer Required: No Level of Education: High School Preferred Method of Learning: Seeing, Doing, Reading Comprehension Ability: No Impairment Able to Read: Yes Able to Write: Yes Select best description of speech pattern: Clear Speech Ability to express ideas and wants: Understood Understanding verbal content: Understands - Psychosocial Well-Being Usual Living Arrangement: Alone - Physical Functioning Activity Level: Up as tolerated Turning: Self ad kary ROM Ability: Moves all extremities Assistive Devices: 2 Wheel Walker Ambulation Ability: Independent Bed Mobility: Independent Transfer Ability: Independent Bathing Ability: Needs Assist Personal Hygiene: Needs Assist Dressing Ability: Needs Assist Eating (Feeding) Ability: Independent Toileting Ability: Independent Administer Own Medication: Independent - Continence Bowel Pattern: Constipated Bladder Pattern: Normal - Dental Status Broken or loosely fitting full or partial dentures: No No natural teeth or tooth fragment(s) (edentulous): No Abnormal mouth tissue (ulcers, masses, oral lesions, etc.): No Obvious or likely cavity or broken natural teeth: No Inflamed or bleeding gums or loose natural teeth: No Mouth/facial pain, discomfort or difficulty chewing: No - Nutrition Screening Poor oral intake > 1 week: No Unplanned weight loss in specified time frame: No Nutrition Support via tube feedings or parenteral nutrition: No Pressure Ulcer: No Significantly underweight define as BMI <18.5 kg/m2: No Albumin <2.5mg/dL: No Persistent nausea/vomiting/diarrhea >3 days: No Difficulty chewing/swallowing/mouth sores: No Admitting Diagnosis: No Nutrition Risk Score: Low Risk Review of Systems Constitutional: Reports: Weakness (generalized). Denies: Fever, Night sweats Eyes: Denies: Eye pain, Photophobia, Vision change ENT: Denies: Congestion, Dental pain, Ear pain Respiratory: Denies: Cough Cardiovascular: Denies: Arrhythmia, Chest pain, Edema Gastrointestinal: Reports: Constipation. Denies: Abdominal pain, Nausea, Vomiting Musculoskeletal: Reports: Arthralgia (knee joint left) Past Medical History - SOCIAL HISTORY Smoking Status: Former smoker - SURGICAL HISTORY Past Surgical History: hysterectomy;. bilat carpal tunnel release;. left knee scopes x2;. colonoscopy x2. - RESPIRATORY Hx Respiratory Disorders: No - CARDIOVASCULAR Hx Cardio Disorders: No Comment:: walks dog"edilia" qd - NEURO Hx Neuro Disorders: No - GI Hx GI Disorders: Yes Hx Diverticulitis: Yes (diverticulosis) Hx Reflux: Yes Hx Wt Loss/Wt Gain: Yes (gain 8 lb/1year) - Hx Genitourinary Disorders: Yes Hx Bladder Problem: Yes (urgency at times) - ENDOCRINE Hx Endocrine Disorders: No - MUSCULOSKELETAL Hx Musculoskeletal Disorders: Yes Hx Arthritis: Yes (osteoarthritis left knee) Hx Osteoporosis: Yes - PSYCH Hx Psych Problems: No - HEMATOLOGY/ONCOLOGY Hx Hematology/Oncology Disorders: No Family Medical History Any Significant Family History?: Yes Hx Cancer: Brother/Sister Hx Diabetes: Mother Hx Heart Disease: Father, Mother, Brother/Sister Hx HTN: Father, Mother Hx Seizures: Brother/Sister Hx Stroke: Brother/Sister H&P Meds/Allergies - Allergies Allergies: Allergies Allergy/AdvReac Type Severity Reaction Status Date / Time No Known Allergies Allergy Unverified 06/11/17 11:07 - Active Medications Active Medications: Current Medications Acetaminophen (Tylenol 325mg) 650 mg PO Q4H PRN PRN Reason: FEVER/PAIN Hydrocodone Bitart/Acetaminophen ([place] 5mg/325mg) 1 each PO Q6H PRN PRN Reason: Pain - Moderate (5-7) Hydrocodone Bitart/Acetaminophen ([place] 5mg/325mg) 2 each PO Q6H PRN PRN Reason: Pain - Severe (8-10) Last Admin: 06/23/17 22:27 Dose: 2 each Al Hydroxide/Mg Hydroxide (Maalox) 30 ml PO Q6H PRN PRN Reason: GI UPSET Aspirin (Ecotrin (Ec)) 325 mg PO BID [facility] Last Admin: 06/24/17 10:40 Dose: 325 mg Magnesium Hydroxide (Milk Of Magnesium) 30 ml PO DAILY PRN PRN Reason: INDIGESTION Multivitamins/Minerals (Centrum) 1 tab PO DAILY [facility] Last Admin: 06/24/17 10:39 Dose: 1 tab Patient Own Med: (Cetirizine 10 Mg Tab) 1 each PO DAILY [facility] Last Admin: 06/24/17 10:40 Dose: 1 each Patient Own Med: (Omeprazole 20 Mg Cap) 1 each PO BIDAC [facility] Last Admin: 06/24/17 06:31 Dose: 1 each Patient Own Med: (Systane Opth Soln) 1 each OPTH QID [facility] Last Admin: 06/24/17 10:40 Dose: 1 each Patient Own Med: (Lovastatin 40 Mg Tab) 1 each PO QHS [facility] Last Admin: 06/23/17 22:28 Dose: 1 each Patient Own Med: Citrucel Fiber Tablet 1 each PO DAILY [facility] Last Admin: 06/24/17 10:40 Dose: 1 each Senna/Docusate Sodium (Senna Plus) 1 each PO BID PRN PRN Reason: CONSTIPATION Vitamin D (Vitamin D3) 2,000 unit PO DAILY [facility] Last Admin: 06/24/17 10:40 Dose: 2,000 unit Zolpidem Tartrate (Ambien) 5 mg PO QHS PRN PRN Reason: SLEEP Physical Exam - Vital Signs Vital Signs: Vital Signs - Last 24 Hrs Temp Pulse Resp BP BP Pulse Ox 06/24/17 09:10 97.6 F 158/78 06/23/17 14:15 97.6 F 78 18 158/78 98 - General General Appearance: Alert, Oriented x3, Cooperative, No acute distress - Head Head exam: Normal inspection - Eye Eye exam: Normal appearance, PERRL - ENT ENT exam: Normal exam, Mucous membranes moist, Normal external ear exam, Normal orophraynx, TM's normal bilaterally - Neck Neck exam: Normal inspection, Full ROM. negative: Tenderness - Respiratory Respiratory exam: Normal lung sounds bilaterally. negative: Respiratory distress - Cardiovascular Cardiovascular Exam: Regular rate, Normal rhythm, Normal heart sounds - GI/Abdominal GI/Abdominal exam: Soft, Normal bowel sounds. negative: Tenderness - Extremities Extremities exam: Normal inspection, Full ROM, Normal capillary refill, Other ( left surgical site is clean and without evidence of infection). negative: Tenderness - Neurological Neurological exam: Alert, Normal gait (walks with walker), Oriented X3, Reflexes normal - Psychiatric Psychiatric exam: Normal affect, Normal mood Discharge Potential - Discharge Needs Community Services Used Prior to Admission: None Patient Discharge Plan Description: Return Home Community Services Needed at Discharge: None Plan - Swing Bed Certification Initial Certification Due: 06/23/17 14 Day Re-Cert Due: 07/07/17 44 Day Re-Cert Due: 08/06/17 74 Day Re-Cert Due: 09/05/17 - Detailed Diagnosis and Plan (1) Physical deconditioning Current Visit: Yes Status: Acute Base Code: R53.81 - OTHER MALAISE Comment : 06/24/17- physical deconditioning due to hospitalization for left tka. -will have her work with Pt/ot M-F. -anticipate short HO stay. will work with SW to get her set up with home health upon discharge (2) S/P total knee arthroplasty Current Visit: Yes Status: Acute Qualifiers: Laterality: left Qualified Code(s): Z96.652 - Presence of left artificial knee joint Base Code: Z96.659 - PRESENCE OF UNSPECIFIED ARTIFICIAL KNEE JOINT Comment: - s/p left tka on 06/20/[address] Pham -pain has been very well controlled with norco at night and hasn't needed any other medications during the day (3) DVT prophylaxis Current Visit: Yes Status: Acute Base Code: [id number] - Comment: 06/24/17- per ortho, she is taking aspirin 325mg po bid for prophylaxis -encouraging ambulation with pt/ot (4) Full code status Current Visit: Yes Status: Acute Base Code: Z78.9 - OTHER SPECIFIED HEALTH STATUS Comment: 06/24/17- patient is full code
--- NOTE | 2017-06-24 13:48 | Rehab Evaluation ---
Patient Information - Patient Information Diagnosis: Left TKA Ordered Treatment: PT Evaluate and Treat Status: Initial Evaluation Surgery: Yes (Left TKA) Date of Surgery: 06/20/17 Past Medical/Surgical Hx: PAST MEDICAL/SURGICAL HISTORY Past Surgical History hysterectomy; bilat carpal tunnel release; left knee scopes x2; colonoscopy x2. PMH - Respiratory Hx Respiratory Disorders No PMH - Cardiovascular Hx Cardiovascular Disorders No Comment: walks dog"edilia" qd PMH - Neuro Hx Neurological Disorders No PMH - GI Hx Gastrointestinal Disorders Yes Hx Diverticulitis Yes: diverticulosis Hx Gastroesophageal Reflux Yes Hx Weight Loss/Weight Gain Yes: gain 8 lb/1year PMH - Hx Genitourinary Disorders Yes Hx Bladder Problem Yes: urgency at times PMH - Endocrine Hx Endocrine Disorders No PMH - Musculoskeletal Hx Musculoskeletal Disorders Yes Hx Arthritis Yes: osteoarthritis left knee Hx Osteoporosis Yes PMH - Psych Hx Psychiatric Problems No PMH - Hematology/Oncology Hx Hematology/Oncology No Disorders Premorbid Status: Detail (Pt lives alone in a 2nd floor apartment with an elevator. She has a walk in shower with an emergency pull cord as well as grab bars and she usually stands to shower. She has an elevated toilet seat, no grab bars. She was Ind with all ADLs and IADLS as well as driving. Pt was ambulating without an assistive device. She has a 2 wheeled walker.) Precautions: [place], Fall - Time With Patient Total Time Spent With Patient (Min): 35 Treatment Procedures: Detail (Initial Evaluation and TKA exercises including SAQ , heelslides, gluteal sets, quadricep sets, hamstring sets, SLR, ankle pumps all x 10 reps.) Subjective Information - Subjective Information Per Patient (The patient had no complaints of pain.) Objective Data - Mental Status Patient Orientation: Oriented x3 - Visual Perception Appears within normal limits for therapeutic activities - ROM Not within normal limits (L knee AROM: flexion 75 degrees, extension seated -25 degrees, supine -5 degrees.) - Strength/Tone Not within normal limits (The patient's R LE strength is generally 5/5. The patient's L LE strength is : hip flexors 3-/5, hip abductors , adductors , extensors 4/5, knee extensors 3-/5, knee flexors 4/5. Refer to OT note for UE strength.) - Bed Mobility Independent (Independent with supine to and from sit and scooting up in bed without use of trapeze.) - Transfers Independent (Independent with sit to and from stand transfer.) - Balance Balance Sitting: Good Balance Standing: Good - Gait Detail (The patient ambulated independently with wheeled walker a distance of 160 feet x 1 with WBAT on the L LE. The patient ambulated on stairs on inpatient status with use of one railing and walker with supervision for safety. ) Therapy Assessment - Therapy Assessment Detail (The patient is independent with mobility and ambulation. The patient has L knee AROM deficits and decreased L LE strength as to be expected following TKA surgery.) Problem List - Problem List Physical Therapy Problem List: Detail (1) Decreased L knee AROM 2) Decreased L LE strength 3) Independent with all trnasfers including car transfer) Occupational Therapy Problem List: Detail (1. Decreased Ind with IADLs (meal prep, home mgmt)) Goals - Goals Physical Therapy Goals: 1) The patient will be independent with HEP and progression. 2) Independent with all transfers including car transfer. 3) Increase L knee AROM by 5 to 10 degrees in limited motions. Occupational Therapy Goals: 1. Pt will demonstrate Ind with simulated IADLs. Prognosis - Prognosis Good Plan - Plan Physical Therapy Plan: PT 1-2 times a day until inpatient goals are acheived for LE ROM, strengthening exercises and transfer training. Anticipate sucessful completion of PT goals in 1 to 2 days. Occupational Therapy Plan: OT 1-2 visits to assess IADLs.
--- NOTE | 2017-06-24 16:51 | Swing Bed Certification/Recert ---
Initial Certification Due: 06/23/17 14 Day Re-Cert Due: 07/07/17 44 Day Re-Cert Due: 08/06/17 74 Day Re-Cert Due: 09/05/17 CERTIFICATION 3 CERTIFICATION OF PATIENT ADMISSION Required at time of admission. Due: 06/23/17 I certify that SNF services are required to be given on an inpatient basis because of the above named patient's need for residential care on a continuing basis for the condition(s) for which he/she was receiving inpatient hospital services prior to his/her transfer to the SNF. The patient's current needs for skilled care includes: [physical deconditioning due to left total knee arthroplasty, needs help with ADL's. ] Wendi Rose 06/24/17
[2017-06-24] MEDS: LOVASTATIN 40 MG PO SCH (22:22)
[2017-06-24] MEDS: HYDROCODONE/APAP 5/325MG TABLET PO PRN (22:23)
[2017-06-25] MEDS: OMEPRAZOLE 20 MG PO SCH ×2 (07:48→16:41)
--- NOTE | 2017-06-25 09:52 | Physical Therapy Tx Note ---
Physical Therapy Tx Note - Treatment Note Tolerated: Good Total Time Spent With Patient: 30 Physical Therapy Tx Note: Detail (The patient ambulated with wheeled walker 154 feet x 1 with WBAT on the L LE independently. The patient completed L LE strengthening exercises: seated heel slides, LAQ x 5 reps and adductor squeezes x 10 reps, SLR x 2 reps, heel slides with quad sets with ball, hamstring sets all x 10 reps, quads set x 5 5eps, SAQ x 10 reps. The patient 's AROM was flexion 80 degrees, extension -5 degrees. The patient has difficulty isolating her quadricep.) Physical Therapy Problem List: Detail (1) Decreased L knee AROM 2) Decreased L LE strength 3) Independent with all trnasfers including car transfer) Physical Therapy Goals: 1) The patient will be independent with HEP and progression. 2) Independent with all transfers including car transfer. 3) Increase L knee AROM by 5 to 10 degrees in limited motions. Physical Therapy Plan: PT 1-2 times a day until inpatient goals are acheived for LE ROM, strengthening exercises and transfer training. Anticipate sucessful completion of PT goals in 1 to 2 days. Anticipate discharge tomorrow.
[2017-06-25] MEDS: MULTIVITAMINS/MINERALS TABLET PO SCH (09:57)
[2017-06-25] MEDS: ASPIRIN 325 MG TAB ENTERIC-COATED PO SCH ×2 (09:57→22:14)
[2017-06-25] MEDS: CITRUCEL FIBER PO SCH (09:58)
[2017-06-25] MEDS: CETIRIZINE 10 MG PO SCH (09:58)
[2017-06-25] MEDS: SYSTANE OPTH OPTH SCH ×4 (09:59→22:14)
[2017-06-25] MEDS: CHOLECALCIFEROL 1,000 UNIT TABLET PO SCH (09:59)
--- NOTE | 2017-06-25 15:05 | Occupational Therapy Tx Note ---
Occupational Therapy Tx Note - Treatment Note Tolerated: Good Total Time Spent With Patient: 30 (ADL) Occupational Therapy Treatment Note: Detail (S: Pt in chair, feeling good. O: Sit to stand and amb from room to rehab gym with 2 wheeled walker. Pt educated re: IADL activities including meal prep, cupboard organization, laundry with walker. Pt able to demonstrate simulated activities with walker. Pt ambulated back to room with 2 wheeled walker Indly. Sit to supine Indly. A : Ind with simulated IADL activities, Ind with functional mobility with 2 wheeled walker.) Occupational Therapy Problem List: Detail (1. Decreased Ind with IADLs (meal prep, home mgmt)) Occupational Therapy Goals: 1. Pt will demonstrate Ind with simulated IADLs. Prognosis: Good Occupational Therapy Plan: OT 1-2 visits to assess IADLs.
[2017-06-25] MEDS: HYDROCODONE/APAP 5/325MG TABLET PO PRN (22:14)
[2017-06-25] MEDS: LOVASTATIN 40 MG PO SCH (22:14)
[2017-06-26] MEDS: OMEPRAZOLE 20 MG PO SCH (06:50)
[2017-06-26] MEDS: MULTIVITAMINS/MINERALS TABLET PO SCH (10:19)
[2017-06-26] MEDS: ASPIRIN 325 MG TAB ENTERIC-COATED PO SCH (10:21)
[2017-06-26] MEDS: SYSTANE OPTH OPTH SCH ×2 (10:22→14:11)
[2017-06-26] MEDS: CITRUCEL FIBER PO SCH (10:22)
[2017-06-26] MEDS: CETIRIZINE 10 MG PO SCH (10:22)
[2017-06-26] MEDS: CHOLECALCIFEROL 1,000 UNIT TABLET PO SCH (10:23)
--- NOTE | 2017-06-26 10:42 | Discharge Summary ---
Providers Discharge Summary Date: 06/26/17 Date of admission: 06/23/17 13:40 Expected Date of Discharge: 06/26/17 Attending physician: JAKE KOLB Primary care physician: Divya Lehman Physical Exam - General General Appearance: Alert, Oriented x3, Cooperative, No acute distress - Head Head exam: Normal inspection - Eye Eye exam: Normal appearance, PERRL - ENT ENT exam: Normal exam, Mucous membranes moist, Normal external ear exam, Normal orophraynx, TM's normal bilaterally - Neck Neck exam: Normal inspection, Full ROM. negative: Tenderness - Respiratory Respiratory exam: Normal lung sounds bilaterally. negative: Respiratory distress - Cardiovascular Cardiovascular Exam: Regular rate, Normal rhythm, Normal heart sounds - GI/Abdominal GI/Abdominal exam: Soft, Normal bowel sounds. negative: Tenderness - Extremities Extremities exam: Normal inspection, Full ROM, Normal capillary refill, Other ( left surgical site is clean and without evidence of infection). negative: Tenderness - Neurological Neurological exam: Alert, Normal gait (walks with walker), Oriented X3, Reflexes normal - Psychiatric Psychiatric exam: Normal affect, Normal mood Hospitalization - Hospitalization Admission Diagnosis: deconditioning due to total left knee replacement - Problem List (1) Physical deconditioning Current Visit: Yes Status: Acute Base Code: R53.81 - OTHER MALAISE Comment : 06/26/17- improved. physical deconditioning due to hospitalization for left tka. -will plan to discharge home with residential home health to continue PT/OT and nursing -she has follow up with Dr. Pham scheduled (2) S/P total knee arthroplasty Current Visit: Yes Status: Acute Discharge Diagnosis: Laterality: left Qualified Code(s): Z96.652 - Presence of left artificial knee joint Base Code: Z96.659 - PRESENCE OF UNSPECIFIED ARTIFICIAL KNEE JOINT Comment: - s/p left tka on 06/20/[address] Pham -pain has been very well controlled with norco at night and hasn't needed any other medications during the day (3) DVT prophylaxis Current Visit: Yes Status: Acute Base Code: [id number] - Comment: 06/26/17- per ortho, she is taking aspirin 325mg po bid for prophylaxis -encouraged ambulation with pt/ot (4) Full code status Current Visit: Yes Status: Acute Base Code: Z78.9 - OTHER SPECIFIED HEALTH STATUS Comment: 06/26/17- patient is full code - Hospitalization Course Disposition: Home Health Service Condition at Discharge: (2) Stable Discharge Medications - Discharge Medications Home Medications: Ambulatory Orders Lansoprazole [Prevacid] 15 mg PO BID PRN 01/13/16 [Last Taken Unknown] Lovastatin 10 mg PO QD tab 01/13/16 [Last Taken Unknown] Discharge Plan - Discharge Instructions Activity at Discharge: As Per Physical Therapy Diet at Discharge: Regular Diet, Low Fat, Low Cholesterol Additional Instructions: Follow up with Dr. Pham as instructed Continue PT/OT at home May use [place] 5/325mg by mouth one to two times daily as needed for severe pain Please call with any questions or concerns
--- NOTE | 2017-06-26 14:10 | Rehab Discharge Summary ---
Patient Information - Patient Information Diagnosis: Left TKA Ordered Treatment: OT Evaluate and Treat Surgery: Yes (Left TKA) Date of Surgery: 06/20/17 Past Medical/Surgical Hx: PAST MEDICAL/SURGICAL HISTORY Past Surgical History hysterectomy; bilat carpal tunnel release; left knee scopes x2; colonoscopy x2. PMH - Respiratory Hx Respiratory Disorders No PMH - Cardiovascular Hx Cardiovascular Disorders No Comment: walks dog"edilia" qd PMH - Neuro Hx Neurological Disorders No Hx Seizures No PMH - GI Hx Gastrointestinal Disorders Yes Hx Diverticulitis Yes: diverticulosis Hx Gastroesophageal Reflux Yes Hx Weight Loss/Weight Gain Yes: gain 8 lb/1year PMH - Hx Genitourinary Disorders Yes Hx Bladder Problem Yes: urgency at times PMH - Endocrine Hx Endocrine Disorders No PMH - Musculoskeletal Hx Musculoskeletal Disorders Yes Hx Arthritis Yes: osteoarthritis left knee Hx Osteoporosis Yes PMH - Psych Hx Psychiatric Problems No PMH - Hematology/Oncology Hx Hematology/Oncology No Disorders Premorbid Status: Detail (Pt lives alone in a 2nd floor apartment with an elevator. She has a walk in shower with an emergency pull cord as well as grab bars and she usually stands to shower. She has an elevated toilet seat, no grab bars. She was Ind with all ADLs and IADLS as well as driving. Pt was ambulating without an assistive device. She has a 2 wheeled walker.) Precautions: [place], Fall Subjective Information - Subjective Information Per Patient Objective Data - Pain Pain Present: Yes (mild left knee pain) - Mental Status Patient Orientation: Oriented x3 - Visual Perception Appears within normal limits for therapeutic activities (Pt wears glasses at all times.) - ROM Within normal limits (Raman UE AROM WNL) - Strength/Tone Within normal limits (Raman UE MMT 4+/5) - Coordination Appears within normal limits for therapeutic activities - Bed Mobility Independent (Ind with all bed mobility) - Transfers Independent (Ind with sit to stand from multiple surfaces.) - Balance Balance Sitting: Good Balance Standing: Good - Sensation Intact - Gait Detail (Pt ambulating household distances with 2 wheeled walker Indly.) - ADL's/IADL's Detail (Pt demonstrates Ind with showering, total body dressing and grooming/ hygiene using modified dressing techniques for LE dressing.) Therapy Assessment - Therapy Assessment Detail (Pt is safe and Ind with showering, dressing, simulated IADL activities as well as functional mobility.) Problem List - Problem List Physical Therapy Problem List: Detail (1) Decreased L knee AROM 2) Decreased L LE strength 3) Independent with all trnasfers including car transfer) Occupational Therapy Problem List: Detail (1. Decreased Ind with IADLs (meal prep, home mgmt)) Goals - Goals Physical Therapy Goals: 1) The patient will be independent with HEP and progression. 2) Independent with all transfers including car transfer. 3) Increase L knee AROM by 5 to 10 degrees in limited motions. Occupational Therapy Goals: Goals Met: 1. Pt will demonstrate Ind with simulated IADLs. Prognosis - Prognosis Good Plan - Plan Physical Therapy Plan: PT 1-2 times a day until inpatient goals are acheived for LE ROM, strengthening exercises and transfer training. Anticipate sucessful completion of PT goals in 1 to 2 days. Anticipate discharge tomorrow. Occupational Therapy Plan: Pt discharging home today with home OT/PT to assess IADLs in the home setting.
--- NOTE | 2017-06-28 09:09 | Rehab Discharge Summary ---
Patient Information - Patient Information Diagnosis: Left TKA Ordered Treatment: PT Evaluate and Treat Surgery: Yes (Left TKA) Date of Surgery: 06/20/17 Past Medical/Surgical Hx: PAST MEDICAL/SURGICAL HISTORY Past Surgical History hysterectomy; bilat carpal tunnel release; left knee scopes x2; colonoscopy x2. PMH - Respiratory Hx Respiratory Disorders No PMH - Cardiovascular Hx Cardiovascular Disorders No Comment: walks dog"edilia" qd PMH - Neuro Hx Neurological Disorders No Hx Seizures No PMH - GI Hx Gastrointestinal Disorders Yes Hx Diverticulitis Yes: diverticulosis Hx Gastroesophageal Reflux Yes Hx Weight Loss/Weight Gain Yes: gain 8 lb/1year PMH - Hx Genitourinary Disorders Yes Hx Bladder Problem Yes: urgency at times PMH - Endocrine Hx Endocrine Disorders No PMH - Musculoskeletal Hx Musculoskeletal Disorders Yes Hx Arthritis Yes: osteoarthritis left knee Hx Osteoporosis Yes PMH - Psych Hx Psychiatric Problems No PMH - Hematology/Oncology Hx Hematology/Oncology No Disorders Premorbid Status: Detail (Pt lives alone in a 2nd floor apartment with an elevator. She has a walk in shower with an emergency pull cord as well as grab bars and she usually stands to shower. She has an elevated toilet seat, no grab bars. She was Ind with all ADLs and IADLS as well as driving. Pt was ambulating without an assistive device. She has a 2 wheeled walker.) Precautions: [place], Fall Subjective Information - Subjective Information Per Patient (The patient had minimal complaints of L knee pain.) Objective Data - Mental Status Patient Orientation: Oriented x3 - Visual Perception Appears within normal limits for therapeutic activities - ROM Not within normal limits (The patient's L knee AROM was flexion 80 degrees, extension -5 degrees,) - Strength/Tone Not within normal limits (The patient's R LE strength was generally 4+ to 5/5 except for Quadricep and Hamstring strength which was 4/5.) - Bed Mobility Independent - Transfers Independent (The patient was independent with sit to and from stand transfer and toilet transfer.) - Balance Balance Sitting: Good Balance Standing: Good - Gait Detail (The patient ambulated with wheeled walker 300 feet plus, weight bearing as tolerated on the L LE. The patient also ambulated on 3 steps with use of walker and one railing with supervision for safety.) Therapy Assessment - Therapy Assessment Detail (The patient was independent with all mobility and progressing well with L knee AROM and strength.) Patient Education - Patient Education Teaching Topic: Exercise/Activity (LE strengthening exercises and knee ROM exercises.) Response: Return Demonstration Teaching Method: Discussion, Handout Teaching Recipient: Patient Barriers To Learning: Age Related Problem List - Problem List Physical Therapy Problem List: Detail (1) Decreased L knee AROM 2) Decreased L LE strength 3) Independent with all trnasfers including car transfer) Occupational Therapy Problem List: Detail (1. Decreased Ind with IADLs (meal prep, home mgmt)) Goals - Goals Physical Therapy Goals: GOALS MET: 1) The patient will be independent with HEP and progression. 2) Independent with all transfers including car transfer. 3) Increase L knee AROM by 5 to 10 degrees in limited motions. Occupational Therapy Goals: Goals Met: 1. Pt will demonstrate Ind with simulated IADLs. Plan - Plan Physical Therapy Plan: The patient discharged to home and is to recive home PT services. Occupational Therapy Plan: Pt discharging home today with home OT/PT to assess IADLs in the home setting.
== END 2017-06-26 15:20 | disposition home health service (06) | DRG 948 ==
LOC: MEDSURG 13:40
PROVIDERS: ADMIT Family Medicine; ATTEND Family Medicine
DX: R53.81 Other malaise (principal); Z96.652 Presence of left artificial knee joint; Z78.9 Other specified health status
CPT/HCPCS: 97110; 97165; 97530; 97535; 99306; 99316

== ENCOUNTER 2019-01-21 10:47 | Observation (INO) | payer MEDICARE, BC ==
[2019-01-21] MEDS ORDERED: 0.9 % SODIUM CHLORIDE 1,000 ML BAG IV ONE ×2 (11:06→13:28)
--- NOTE | 2019-01-21 11:15 | Emergency Department Record ---
History of Present Illness - General Chief complaint: Female Urogenital Problem Stated complaint: LOWER ABD PAIN Time Seen by Provider: 01/21/19 10:52 Source: Patient Mode of Arrival: EMS Limitations: No limitations - History of Present Illness Initial comments: The patient is here due to lower AP for the last 5-6 hours. She did have a fever this AM early and has had progressively increasing AP since. The pain is mainly on the R side of the abdomen and is sharp and stabbing. She has had mild nausea but no vomiting. The patient did have a UTI a few weeks ago but has been off an Abx for about 2 weeks. The patient has had no abdominal surgeries. MD Complaint: Other Onset/Timin -: Hour(s) Location: Suprapubic Severity: Moderate Severity scale (1-10): 9 Quality: Burning Consistency: Constant Improves with: None Worsens with: None Patient : No Associated Symptoms: Abdominal pain, Fever/chills - Related Data Home Medications Medication Instructions Recorded Confirmed Last Taken Raloxifene HCl 60 mg PO DAILY 01/21/19 01/21/19 01/21/19 Allergies Allergy/AdvReac Type Severity Reaction Status Date / Time No Known Allergies Allergy PT UNSURE Verified 01/21/19 10:56 OF REACTION Travel Screening - Travel/Exposure Within Last 30 Days Have you traveled within the last 30 days?: No - Travel/Exposure Within Last Year Have you traveled outside the [place] in the last year?: No - Additonal Travel Details Have you been exposed to anyone with a communicable illness?: No - Travel Symptoms Symptom Screening: None Review of Systems Constitutional: Reports: Malaise. Denies: Chills, Fever Eyes: Denies: Eye discharge ENT: Denies: Congestion Respiratory: Denies: Cough Cardiovascular: Denies: Arrhythmia Endocrine: Reports: Fatigue Gastrointestinal: Reports: Abdominal pain, Nausea Genitourinary: Denies: Dysuria Musculoskeletal: Denies: Arthralgia Skin: Denies: Bruising Past Medical History - SOCIAL HISTORY Smoking Status: Former smoker Alcohol Use: None Drug Use: None - RESPIRATORY Hx Respiratory Disorders: No - CARDIOVASCULAR Hx Cardio Disorders: No Comment:: walks dog"edilia" qd - NEURO Hx Neuro Disorders: No Hx Seizures: No - GI Hx GI Disorders: Yes Hx Diverticulitis: Yes (diverticulosis) Hx Reflux: Yes Hx Wt Loss/Wt Gain: Yes (gain 8 lb/1year) - Hx Genitourinary Disorders: Yes Hx Bladder Problem: Yes (urgency at times) - ENDOCRINE Hx Endocrine Disorders: No - MUSCULOSKELETAL Hx Musculoskeletal Disorders: Yes Hx Arthritis: Yes (osteoarthritis left knee) Hx Osteoporosis: Yes - PSYCH Hx Psych Problems: No - HEMATOLOGY/ONCOLOGY Hx Hematology/Oncology Disorders: No Family Medical History Any Significant Family History?: Yes Hx Cancer: Brother/Sister Hx Diabetes: Mother Hx Heart Disease: Father, Mother, Brother/Sister Hx HTN: Father, Mother Hx Seizures: Brother/Sister Hx Stroke: Brother/Sister Physical Exam - General General Appearance: Alert, Oriented x3, Cooperative, No acute distress - Head Head exam: Atraumatic, Normocephalic, Normal inspection - Eye Eye exam: Normal appearance, PERRL, EOMI - ENT Throat exam: Normal inspection. negative: Tonsillar erythema, Tonsillar exudate - Neck Neck exam: Normal inspection, Full ROM. negative: Lymphadenopathy, Meningismus , Tenderness - Respiratory Respiratory exam: Normal lung sounds bilaterally. negative: Respiratory distress - Cardiovascular Cardiovascular Exam: Regular rate, Normal rhythm, Normal heart sounds - GI/Abdominal GI/Abdominal exam: Soft, Normal bowel sounds, Tenderness (There is diffuse R sided abdominal tenderness.). negative: Rebound, Rigid - Extremities Extremities exam: Normal inspection, Full ROM, Normal capillary refill. negative: Tenderness - Back Back exam: Denies: Vertebral tenderness - Neurological Neurological exam: Alert. negative: Motor sensory deficit - Psychiatric Psychiatric exam: negative: Anxious Course Vital Signs 01/21/19 10:59 Temperature 98.6 F Pulse Rate 75 Respiratory 20 Rate Blood Pressure 133/69 Pulse Ox 96 - Reevaluation(s) Reevaluation #1: The patient is doing better at this time. She is still having the R sided pain and tenderness but denies any fever, back pain, vomiting, or diarrhea. We are waiting on 2 lab tests prior to her disposition. 01/21/19 13:36 Reevaluation #2: The patient is doing better at this time and is drinking fluids. She is still having some R sided AP. Due to the urine infection, fever, and R sided pain I did recommend admission overnight to the hospital and the patient did agree. I then did discuss the case with Lu (CHILD PSYCHOLOGIST) and she did accept the admission for Dr. Goodrich. 01/21/19 14:53 Medical Decision Making - Data Complexity MDM Data: Labs Ordered and/or Reviewed, X-Ray Ordered and/or Reviewed - Lab Data Result diagrams: 01/21/19 10:40 01/21/19 10:40 - Radiology Data Radiology results: Report reviewed (CT: Nonspecific colitis from mid transverse to mid descending colon. O/W neg.) Disposition Disposition: Admit Clinical Impression: Pyelonephritis Disposition: Still a Patient at [facility] Decision to Admit: Admit from ER Decision to Admit Date: 01/21/19 Decision to Admit Time: 14:56 Accepting Physician: Kp Time Discussed w/Accepting Physician: 14:56 Condition: (2) Stable Forms: Patient Portal Access Time of Disposition: 14:56 Quality - Quality Measures Quality Measures: N/A - Blood Pressure Screening View Details: Yes Does Patient Have Any of the Following: No Blood Pressure Classification: Pre-Hypertensive BP Reading Systolic Measurement: 133 Diastolic Measurement: 69 Screening for High Blood Pressure: < Pre-Hypertensive BP, F/U Documented > [ [id number]] Pre-Hypertensive Follow-up Interventions: Referral to alternative/primary care provider.
[2019-01-21 11:23] LABS: HEMATOCRIT 33.9 % (35.0-47.0); HEMOGLOBIN 11.4 gm/dl (11.6-16.0); MEAN CELL VOLUME 94.2 fl (81-97); MEAN CORPUSCULAR HGB CONC 33.6 g/dl (32-36); MEAN PLATELET VOLUME 10.2 fl (7.4-10.4); PLATELET COUNT 255 K/uL (130-400); RED CELL DISTRIBUTION WIDTH 12.3 % (11.5-14.5); WHITE BLOOD COUNT W/O DIFF 6.3 K/uL (4.2-12.2)
[2019-01-21 11:29] LABS: MEAN CORPUSCULAR HEMOGLOBIN 31.6 pg (27-33)
[2019-01-21 11:35] LABS: BLOOD UREA NITROGEN 10 mg/dL (8-23); CREATININE 0.7 mg/dL (0.5-0.9); EST GLOMERULAR FILTRATION RATE > 60 mL/min
[2019-01-21 11:36] LABS: LIPASE 33 U/L (13-60); TOTAL PROTEIN 6.4 g/dL (6.6-8.7)
[2019-01-21 11:38] LABS: GLUCOSE,RANDOM 113 mg/dL (74-109)
[2019-01-21 11:40] LABS: ALBUMIN 3.6 g/dL (4.0-5.0); ALKALINE PHOSPHATASE 65 U/L (35-104); ALT/SGPT 28 U/L (<33); AST/SGOT 36 U/L (10.0-35.0)
[2019-01-21 11:41] LABS: BILIRUBIN,DIRECT < 0.2 mg/dL (0-0.3)
[2019-01-21 11:57] LABS: URINE APPEARANCE SL CLOUDY; URINE BILIRUBIN NEGATIVE (NEGATIVE); URINE BLOOD SMALL (NEGATIVE); URINE COLOR YELLOW; URINE GLUCOSE (UA) NEGATIVE (NEGATIVE); URINE KETONE TRACE (NEGATIVE); URINE LEUKOCYTE ESTERASE SMALL (NEGATIVE); URINE NITRITE POSITIVE (NEGATIVE); URINE PROTEIN NEGATIVE (NEGATIVE); URINE UROBILINOGEN 0.2 E.U./dL (0.20 - 1.00)
[2019-01-21 12:08] LABS: URINE BACTERIA 4+; URINE EPITHELIAL CELLS 0 - 2 (FEW); URINE WBC >50 (0-2/hpf)
[2019-01-21] MEDS ORDERED: CEFTRIAXONE 1GM/50ML BAG 1 GM/50 ML BAG IVPB ONE (12:31)
[2019-01-21] MEDS ORDERED: KETOROLAC 30 MG/ML VIAL IVP ONE (12:31)
[2019-01-21] MEDS ORDERED: ONDANSETRON HCL IV 4 MG/2 ML VIAL IVP ONE (13:26)
[2019-01-21] MEDS ORDERED: MORPHINE SULFATE 10 MG/ML VIAL IVP ONE (13:26)
[2019-01-21 14:38] LABS: C-REACTIVE PROTEIN 5.52 mg/dL (<0.5); LACTIC ACID 0.5 mmol/L (0.5-2.2)
[2019-01-21] MEDS ORDERED: MORPHINE SULFATE 10 MG/ML VIAL IVP PRN (14:59)
[2019-01-21] MEDS ORDERED: ONDANSETRON HCL IV 4 MG/2 ML VIAL IVP PRN (14:59)
[2019-01-21] MEDS: PANTOPRAZOLE SODIUM IV 40 MG VIAL IV SCH (18:06)
[2019-01-21] MEDS: CEFTRIAXONE 1GM/50ML BAG 1 GM/50 ML BAG IVPB SCH (18:08)
[2019-01-21] MEDS: 0.9 % SODIUM CHLORIDE 1000ML 1,000 ML IV PRN (20:49)
[2019-01-22] MEDS: CEFTRIAXONE 1GM/50ML BAG 1 GM/50 ML BAG IVPB SCH ×2 (04:31→16:20)
[2019-01-22 06:41] LABS: BASO % 0.4 % (0-6); EOS % 0.9 % (0-6); GRAN % 72.4 % (47-80); HEMATOCRIT 31.7 % (35.0-47.0); HEMOGLOBIN 10.4 gm/dl (11.6-16.0); LYMPH % 14.8 % (16-45); MEAN CELL VOLUME 94.9 fl (81-97); MEAN CORPUSCULAR HEMOGLOBIN 31.1 pg (27-33); MEAN CORPUSCULAR HGB CONC 32.8 g/dl (32-36); MONO % 11.5 % (0-9); PLATELET COUNT 246 K/uL (130-400); RED BLOOD COUNT 3.34 M/uL (3.80-5.40); RED CELL DISTRIBUTION WIDTH 12.4 % (11.5-14.5); WHITE BLOOD COUNT W/O DIFF 5.4 K/uL (4.2-12.2)
[2019-01-22] MEDS: 0.9 % SODIUM CHLORIDE 1000ML 1,000 ML IV PRN (06:58)
[2019-01-22 07:02] LABS: ALB/GLOB RATIO 1.2 (1.1-1.8); ALBUMIN 3.1 g/dL (4.0-5.0); ALKALINE PHOSPHATASE 57 U/L (35-104); ALT/SGPT 22 U/L (<33); AST/SGOT 21 U/L (10.0-35.0); BILIRUBIN,TOTAL < 0.20 mg/dL (0.2-1.0); BLOOD UREA NITROGEN 10 mg/dL (8-23); CREATININE 0.6 mg/dL (0.5-0.9); EST GLOMERULAR FILTRATION RATE > 60 mL/min; GLUCOSE,RANDOM 95 mg/dL (74-109); TOTAL PROTEIN 5.6 g/dL (6.6-8.7)
--- NOTE | 2019-01-22 08:03 | CT SCAN REPORT ---
EXAM: CT OF THE ABDOMEN AND PELVIS WITHOUT CONTRAST HISTORY: RIGHT LOWER QUADRANT ABDOMINAL PAIN FOR ONE DAY. PRIOR HYSTERECTOMY. TECHNIQUE: Noncontrast CT of the abdomen and pelvis was obtained. Comparison: None. FINDINGS: Mild bibasilar atelectasis or scarring. Unremarkable appearance of the liver, gallbladder, adrenal glands, spleen, and pancreas. Simple right renal cyst. No hydronephrosis. Punctate calcification in the lower right kidney, possibly vascular calcification or urinary calculus. Unremarkable appearance of the urinary bladder. Absent uterus. Circumferential wall thickening of the colon with associated pericolonic inflammation extending from the mid transverse colon to the mid descending colon. Sigmoid colon diverticulosis without evidence of acute diverticulitis. Nondistended gas containing bowel loops in the lower pelvis, poorly assessed. No dilated small bowel. The stomach is nondilated. No free air or significant free fluid. The urinary bladder is unremarkable. Multilevel degenerative changes of the spine with disk degeneration evident at L4-L5 and L5-S1 and diffuse facet joint arthrosis. No acute osseous findings. IMPRESSION: 1. NONSPECIFIC COLITIS EXTENDING FROM THE MID TRANSVERSE TO THE MID DESCENDING COLON, FAVOR INFECTIOUS OR INFLAMMATORY ETIOLOGIES. 2. SIGMOID COLON DIVERTICULOSIS WITHOUT EVIDENCE OF ACUTE DIVERTICULITIS. JOB NUMBER: [id number] [facility]
--- NOTE | 2019-01-22 08:41 | History & Physical ---
History of Present Illness - Date of Service Date of Service for History & Physical: 01/22/19 - History of Present Illness Admitting Diagnosis: 1. Acute Pyelonephritis History of Present Illness: 78 year old female patient presents to ED for evaluation of lower abdominal pain that started today. Patient reported noting a fever earlier in the day with worsening abdominal pain. Patient reported mild nausea but no vomiting. Patient reports having taken Bactrim twice in the past month for recurrent UTIs. Patient states her most recent antibiotic was over 1 week ago. Patient denies any diarrhea or abdominal surgeries. Past medical history includes: high cholesterol, osteoporosis, and a history of diverticulosis PCP: Dr. Quick ED Course: Temp 98.6, RR 20, HR 75, BP 133/69, Pulse ox 96% WBC 6.3, Hgb 11.4, lactic acid 0.5, Crp 5.52 01/22/19: Patient A&O x 4, resting comfortably in bed. Patient denies any pain at this time, denies nausea, fever, chills, or diarrhea. Patient has been tolerating oral fluids, ambulating with no pain within room. Travel Screening - Travel/Exposure Within Last 30 Days Have you traveled within the last 30 days?: No - Travel/Exposure Within Last Year Have you traveled outside the [place] in the last year?: No - Additonal Travel Details Have you been exposed to anyone with a communicable illness?: No - Travel Symptoms Symptom Screening: Stomach Pain Review of Systems Reviewed: No additional complaints except as noted below Constitutional: Reports: Malaise. Denies: Chills, Fever Eyes: Denies: Eye discharge ENT: Denies: Congestion Respiratory: Denies: Cough Cardiovascular: Denies: Arrhythmia Endocrine: Reports: Fatigue Gastrointestinal: Reports: Abdominal pain, Nausea Genitourinary: Denies: Dysuria Musculoskeletal: Denies: Arthralgia Skin: Denies: Bruising Past Medical History - SOCIAL HISTORY Smoking Status: Former smoker - RESPIRATORY Hx Respiratory Disorders: No - CARDIOVASCULAR Hx Cardio Disorders: No Comment:: walks dog"edilia" qd - NEURO Hx Neuro Disorders: No Hx Seizures: No - GI Hx GI Disorders: Yes Hx Diverticulitis: Yes (diverticulosis) Hx Reflux: Yes Hx Wt Loss/Wt Gain: Yes (gain 8 lb/1year) - Hx Genitourinary Disorders: Yes Hx Bladder Problem: Yes (urgency at times) - ENDOCRINE Hx Endocrine Disorders: No - MUSCULOSKELETAL Hx Musculoskeletal Disorders: Yes Hx Arthritis: Yes (osteoarthritis left knee) Hx Osteoporosis: Yes - PSYCH Hx Psych Problems: No - HEMATOLOGY/ONCOLOGY Hx Hematology/Oncology Disorders: No Family Medical History Any Significant Family History?: Yes Hx Cancer: Brother/Sister Hx Diabetes: Mother Hx Heart Disease: Father, Mother, Brother/Sister Hx HTN: Father, Mother Hx Seizures: Brother/Sister Hx Stroke: Brother/Sister H&P Meds/Allergies - Allergies Allergies: Allergies Allergy/AdvReac Type Severity Reaction Status Date / Time No Known Allergies Allergy PT UNSURE Verified 01/21/19 10:56 OF REACTION - Home Medications Home Medications Medication Instructions Recorded Confirmed Last Taken Raloxifene HCl 60 mg PO DAILY 01/21/19 01/21/19 01/21/19 - Active Medications Active Medications: Current Medications Sodium Chloride () 1,000 mls @ 100 mls/hr IV .Q10H PRN PRN Reason: LARGE VOLUME IV Last Admin: 01/22/19 06:58 Dose: 100 mls/hr CEFTRIAXONE 1GM/50ML BAG (Ceftriaxone 1 Gm-D5w Bag) 1 gm in 50 mls @ 100 mls/ hr IVPB Q12H [facility] Last Infusion: 01/22/19 05:17 Dose: Infused Morphine Sulfate (Morphine Sulfate) 4 mg IVP Q4H PRN PRN Reason: ABDOMINAL PAIN Ondansetron HCl (Zofran) 4 mg IVP Q4H PRN PRN Reason: NAUSEA Pantoprazole Sodium (Protonix Iv) 40 mg IV DAILY [facility] Last Admin: 01/21/19 18:06 Dose: 40 mg Physical Exam - Vital Signs Vital Signs: Vital Signs - Last 24 Hrs Temp Pulse Pulse Resp BP BP Pulse Ox 01/22/19 05:25 97.8 F 83 18 120/67 96 01/21/19 21:00 70 18 01/21/19 20:00 98.2 F 70 18 127/78 97 01/21/19 18:56 98.1 F 71 18 127/62 98 01/21/19 16:42 18 01/21/19 15:55 97.0 F L 66 18 149/70 97 01/21/19 15:52 68 18 148/71 98 01/21/19 10:59 98.6 F 75 20 133/69 96 - General General Appearance: Alert, Oriented x3, Cooperative, No acute distress Limitations: No limitations - Head Head exam: Atraumatic, Normocephalic, Normal inspection - Eye Eye exam: Normal appearance, PERRL, EOMI - ENT Throat exam: Normal inspection. negative: Tonsillar erythema, Tonsillar exudate - Neck Neck exam: Normal inspection, Full ROM. negative: Lymphadenopathy, Meningismus , Tenderness - Respiratory Respiratory exam: Normal lung sounds bilaterally. negative: Respiratory distress - Cardiovascular Cardiovascular Exam: Regular rate, Normal rhythm, Normal heart sounds Peripheral Pulses: 1+: Radial (R), Radial (L) - GI/Abdominal GI/Abdominal exam: Soft, Normal bowel sounds. negative: Rebound, Rigid, Tenderness - Rectal Rectal exam: Deferred - exam: Deferred - Extremities Extremities exam: Normal inspection, Full ROM, Normal capillary refill. negative: Tenderness - Back Back exam: Denies: Vertebral tenderness - Neurological Neurological exam: Alert, Normal gait, Oriented X3. negative: Motor sensory deficit - Psychiatric Psychiatric exam: Normal affect, Normal mood. negative: Anxious - Skin Skin exam: Dry, Warm Results - Labs Result Diagrams: 01/22/19 06:25 01/22/19 06:25 Labs Last 24 Hours: Laboratory Results - last 24 hr 01/21/19 01/21/19 01/21/19 10:40 10:40 11:55 WBC 6.3 RBC 3.60 L Hgb 11.4 L Hct 33.9 L MCV 94.2 MCH 31.6 MCHC 33.6 RDW 12.3 Plt Count 255 MPV 10.2 Gran % Neutrophils % 86.0 H Lymphocytes % Monocytes % Eosinophils % Not Reportable Basophils % Not Reportable Lymphocytes 7.0 L Monocytes 7.0 Sodium 136 Potassium 3.9 Chloride 101 Carbon Dioxide 22.0 Anion Gap 13.0 BUN 10 Creatinine 0.7 Estimated GFR > 60 Random Glucose 113 H Lactic Acid Calcium 8.7 L Total Bilirubin 0.30 Direct Bilirubin < 0.2 AST 36 H ALT 28 Alkaline Phosphatase 65 C-Reactive Protein Total Protein 6.4 L Albumin 3.6 L Globulin Albumin/Globulin Ratio Lipase 33 Urine Color Yellow Urine Appearance Sl cloudy Urine pH 6.0 Ur Specific Holiday 1.010 Urine Protein Negative Urine Glucose (UA) Negative Urine Ketones Trace H Urine Blood Small H Urine Nitrite Positive H Urine Bilirubin Negative Urine Urobilinogen 0.2 Ur Leukocyte Esterase Small H Urine RBC 3 - 6 Urine WBC >50 Ur Epithelial Cells 0 - 2 Urine Bacteria 4+ 01/21/19 01/22/19 01/22/19 13:55 06:25 06:25 WBC 5.4 RBC 3.34 L Hgb 10.4 L Hct 31.7 L MCV 94.9 MCH 31.1 MCHC 32.8 RDW 12.4 Plt Count 246 MPV 10.0 Gran % 72.4 Neutrophils % Lymphocytes % 14.8 L Monocytes % 11.5 H Eosinophils % 0.9 Basophils % 0.4 Lymphocytes Monocytes Sodium 142 Potassium 3.7 Chloride 109 H Carbon Dioxide 23.0 Anion Gap 10.0 BUN 10 Creatinine 0.6 Estimated GFR > 60 Random Glucose 95 Lactic Acid 0.5 Calcium 8.2 L Total Bilirubin < 0.20 L Direct Bilirubin AST 21 ALT 22 Alkaline Phosphatase 57 C-Reactive Protein 5.52 H Total Protein 5.6 L Albumin 3.1 L Globulin 2.5 Albumin/Globulin Ratio 1.2 Lipase Urine Color Urine Appearance Urine pH Ur Specific Holiday Urine Protein Urine Glucose (UA) Urine Ketones Urine Blood Urine Nitrite Urine Bilirubin Urine Urobilinogen Ur Leukocyte Esterase Urine RBC Urine WBC Ur Epithelial Cells Urine Bacteria 01/22/19 06:25 WBC RBC Hgb Hct MCV MCH MCHC RDW Plt Count MPV Gran % Neutrophils % Lymphocytes % Monocytes % Eosinophils % Basophils % Lymphocytes Monocytes Sodium Potassium Chloride Carbon Dioxide Anion Gap BUN Creatinine Estimated GFR Random Glucose Lactic Acid 0.7 Calcium Total Bilirubin Direct Bilirubin AST ALT Alkaline Phosphatase C-Reactive Protein Total Protein Albumin Globulin Albumin/Globulin Ratio Lipase Urine Color Urine Appearance Urine pH Ur Specific Holiday Urine Protein Urine Glucose (UA) Urine Ketones Urine Blood Urine Nitrite Urine Bilirubin Urine Urobilinogen Ur Leukocyte Esterase Urine RBC Urine WBC Ur Epithelial Cells Urine Bacteria VTE H&P Assessment - Risk for VTE Risk for VTE: Yes Risk Level: Moderate Risk Assessment Date: 01/22/19 Risk Assessment Time: 10:58 VTE Orders Placed or Will Be Placed: Yes Plan - Detailed Diagnosis and Plan (1) Pyelonephritis Current Visit: Yes Status: Acute Base Code: N12 - TUBULO-INTERSTITIAL NEPHRITIS, NOT SPCF ACUTE OR CHRONIC Comment: 01/22/19: -Recent UTI within the past month treated with 2 rounds of Bactrim -UA: small blood, positive nitrites, small leuk, WBC >50, bact 4+ -WBC 6.3, hgb 11.4, lactic 0.5, Crp 5.52 -Afebrile -Rocephin 1gm IV q12hr -NS @ 100ml/hr (2) Abdominal pain Current Visit: Yes Status: Acute Base Code: R10.9 - UNSPECIFIED ABDOMINAL PAIN Comment: 01/22/19: -Suprapubic abd pain upon admission -Abd/pelvic CT: nonspecific colitis consider inflammatory vs infectious cause, diverticuolosis without diverticulitis -No abdominal pain on assessment today -Tolerating oral fluids -No diarrhea or constipation (3) DVT prophylaxis Current Visit: No Status: Acute Base Code: [id number] - Comment: 01/22/19: -High risk due to age, hospitalization, and infection -Lovenox 40mg SQ -Encourage ambulation within the room (4) Full code status Current Visit: No Status: Acute Base Code: Z78.9 - OTHER SPECIFIED HEALTH STATUS Comment: 01/22/19: - patient is full code - Disposition Home
[2019-01-22] MEDS: PANTOPRAZOLE SODIUM IV 40 MG VIAL IV SCH (11:16)
--- NOTE | 2019-01-22 16:19 | Discharge Summary ---
Providers Discharge Summary Date: 01/22/19 Date of admission: 01/21/19 15:33 Expected Date of Discharge: 01/22/19 Attending physician: CELINE FOY Primary care physician: PARAG BALL M.D. Physical Exam - Vital Signs Vital Signs: Vital Signs - Last 24 Hrs Temp Pulse Resp BP Pulse Ox 01/22/19 13:00 98.5 F 81 16 148/71 97 01/22/19 09:00 78 18 01/22/19 08:30 97.3 F L 78 18 127/57 95 01/22/19 05:25 97.8 F 83 18 120/67 96 01/21/19 21:00 70 18 01/21/19 20:00 98.2 F 70 18 127/78 97 01/21/19 18:56 98.1 F 71 18 127/62 98 01/21/19 16:42 18 - General General Appearance: Alert, Oriented x3, Cooperative, No acute distress Limitations: No limitations - Head Head exam: Atraumatic, Normocephalic, Normal inspection - Eye Eye exam: Normal appearance, PERRL, EOMI - ENT Throat exam: Normal inspection. negative: Tonsillar erythema, Tonsillar exudate - Neck Neck exam: Normal inspection, Full ROM. negative: Lymphadenopathy, Meningismus , Tenderness - Respiratory Respiratory exam: Normal lung sounds bilaterally. negative: Respiratory distress - Cardiovascular Cardiovascular Exam: Regular rate, Normal rhythm, Normal heart sounds Peripheral Pulses: 1+: Radial (R), Radial (L) - GI/Abdominal GI/Abdominal exam: Soft, Normal bowel sounds. negative: Rebound, Rigid, Tenderness - Rectal Rectal exam: Deferred - exam: Deferred - Extremities Extremities exam: Normal inspection, Full ROM, Normal capillary refill. negative: Tenderness - Back Back exam: Denies: Vertebral tenderness - Neurological Neurological exam: Alert, Normal gait, Oriented X3. negative: Motor sensory deficit - Psychiatric Psychiatric exam: Normal affect, Normal mood. negative: Anxious - Skin Skin exam: Dry, Warm Hospitalization - Hospitalization Admission Diagnosis: 1. Acute Pyelonephritis - Problem List/Discharge Diagnosis (1) Pyelonephritis Current Visit: Yes Status: Acute Base Code: N12 - TUBULO-INTERSTITIAL NEPHRITIS, NOT SPCF ACUTE OR CHRONIC Comment: 01/22/19: -Recent UTI within the past month treated with 2 rounds of Bactrim -UA: small blood, positive nitrites, small leuk, WBC >50, bact 4+ -WBC 6.3, hgb 11.4, lactic 0.5, Crp 5.52 -Afebrile -Rocephin 1gm IV q12hr -NS @ 100ml/hr -Will dc home on Cipro 500mg BID x 7 days (2) Abdominal pain Current Visit: Yes Status: Acute Base Code: R10.9 - UNSPECIFIED ABDOMINAL PAIN Comment: 01/22/19: -Suprapubic abd pain upon admission -Abd/pelvic CT: nonspecific colitis consider inflammatory vs infectious cause, diverticuolosis without diverticulitis -No abdominal pain on assessment today -Tolerating oral fluids -No diarrhea or constipation (3) DVT prophylaxis Current Visit: No Status: Acute Base Code: [id number] - Comment: 01/22/19: -High risk due to age, hospitalization, and infection -Lovenox 40mg SQ -Encourage ambulation within the room (4) Full code status Current Visit: No Status: Acute Base Code: Z78.9 - OTHER SPECIFIED HEALTH STATUS Comment: 01/22/19: - patient is full code - Disposition Home - Hospitalization Course Disposition: Home, Self-Care Hospital Course: 78 year old female patient presents to ED for evaluation of lower abdominal pain that started today. Patient reported noting a fever earlier in the day with worsening abdominal pain. Patient reported mild nausea but no vomiting. Patient reports having taken Bactrim twice in the past month for recurrent UTIs. Patient states her most recent antibiotic was over 1 week ago. Patient denies any diarrhea or abdominal surgeries. Past medical history includes: high cholesterol, osteoporosis, and a history of diverticulosis PCP: Dr. Ball ED Course: Temp 98.6, RR 20, HR 75, BP 133/69, Pulse ox 96% WBC 6.3, Hgb 11.4, lactic acid 0.5, Crp 5.52 01/22/19: Patient A&O x 4, resting comfortably in bed. Patient denies any pain at this time, denies nausea, fever, chills, or diarrhea. Patient has been tolerating oral fluids, ambulating with no pain within room. UPDATE: Patient continues to remain afebrile, denies pain, tolerating oral diet. Will dc home on Cipro 500mg BID x 7 days and patient scheduled for follow -up with PCP. Procedures: Imaging and X-Rays 01/21/19 11:06 ABDOMEN/PELVIS WO CONTRAST [CT] Stat Abnormal Labs: Abnormal Lab Results 01/21/19 01/21/19 01/21/19 Range/Units 10:40 10:40 11:55 RBC 3.60 L (3.80-5.40) M/uL Hgb 11.4 L (11.6-16.0) gm/dl Hct 33.9 L (35.0-47.0) % Neutrophils % 86.0 H (47-80) % Lymphocytes % (16-45) % Monocytes % (0-9) % Lymphocytes 7.0 L (16-45) % Chloride (98-107) mmol/L Random Glucose 113 H (74-109) mg/dL Calcium 8.7 L (8.8-10.2) mg/dL Total Bilirubin (0.2-1.0) mg/dL AST 36 H (10.0-35.0) U/L C-Reactive Protein (<0.5) mg/dL Total Protein 6.4 L (6.6-8.7) g/dL Albumin 3.6 L (4.0-5.0) g/dL Urine Ketones Trace H (NEGATIVE) Urine Blood Small H (NEGATIVE) Urine Nitrite Positive H (NEGATIVE) Ur Leukocyte Esterase Small H (NEGATIVE) 01/21/19 01/22/19 01/22/19 Range/Units 13:55 06:25 06:25 RBC 3.34 L (3.80-5.40) M/uL Hgb 10.4 L (11.6-16.0) gm/dl Hct 31.7 L (35.0-47.0) % Neutrophils % (47-80) % Lymphocytes % 14.8 L (16-45) % Monocytes % 11.5 H (0-9) % Lymphocytes (16-45) % Chloride 109 H (98-107) mmol/L Random Glucose (74-109) mg/dL Calcium 8.2 L (8.8-10.2) mg/dL Total Bilirubin < 0.20 L (0.2-1.0) mg/dL AST (10.0-35.0) U/L C-Reactive Protein 5.52 H (<0.5) mg/dL Total Protein 5.6 L (6.6-8.7) g/dL Albumin 3.1 L (4.0-5.0) g/dL Urine Ketones (NEGATIVE) Urine Blood (NEGATIVE) Urine Nitrite (NEGATIVE) Ur Leukocyte Esterase (NEGATIVE) Condition at Discharge: (2) Stable Discharge Medications - Discharge Medications Prescriptions: Ciprofloxacin HCl [Cipro] 500 mg PO Q12HR #14 tablet Home Medications: Ambulatory Orders Lovastatin 10 mg PO QD tab 01/13/16 [Last Taken 01/21/19] Raloxifene HCl 60 mg PO DAILY 01/21/19 [Last Taken 01/21/19] Ciprofloxacin HCl [Cipro] 500 mg PO Q12HR #14 tablet 01/22/19 [Last Taken Unknown] Discharge Plan - Discharge Instructions Activity at Discharge: Increase Activity as Tolerated Diet at Discharge: Regular Diet Additional Instructions: -Starting tomorrow, 01/23/19, begin taking the antibiotic, Cipro, twice a day -Continue drinking plenty of fluids -Appointment with Dr. Parag Ball in [place] February 03 at 1: 20pm. Quality Measures - Quality Measures Quality Measures: Advance Directives, Documentation of Current Medications in Medical Record, Elder Maltreatment Screen and Follow-Up Plan, Screening for High Blood Pressure and F/U Documented - Current Medications Quality Measure: Measure #130: Documentation of Current Medications Documentation of Current Medications: <Current Medications Documented/Reviewed> [[id number]] - Blood Pressure Screening Quality Measure: Screening for High Blood Pressure and Follow-Up Documented Does Patient Have Any of the Following: No, Active Dx of HTN Blood Pressure Classification: Hypertensive Reading Systolic Measurement: 148 Diastolic Measurement: 71 Screening for High Blood Pressure: < First Hypertensive BP, F/U Documented > [ [id number]] First Hypertensive Follow-up Interventions: Referral to alternative/primary care provider. - Advance Directives Quality Measure: Measure #47: Care Plan Advance Directives Established: No (Pt will complete within next couple weeks.) Advance Directives Information Provided To Patient: Yes Advance Directives on File: No Living Will: No Power of Organic [employer] Worker: No Advance Care Planning: <Care Plan/Decision Maker Not Decided; Discussed & Documented> [0730F] - Elder Abuse Suspicion Index Screening: Elder Abuse Suspicion Index Screening Rely on people for bathing, dressing, shopping, banking, etc: No Prevented from getting food, clothes, medication, etc: No Made to feel shamed or threatened by someone: No Forced to sign papers or use money against will: No Feel afraid, touched in ways not wanted or hurt physically: No Poor eye contact, withdrawn, malnourished, cuts or bruises: No Screening Result: Negative result EASI Reference Information: Rebecca ELIZABETH, Soha C, Nannette Cedeno, Haydee Tate.Development and validation of a tool to assist physicians identification of elder abuse: The Elder Abuse Suspicion Index (EASI ). Journal of Elder Abuse and Neglect, 2008; 20 (3): 276-300. - Elder Maltreatment Screen Quality Measures: Elder Maltreatment Screen and Follow-Up Plan Elder Maltreatment Screen: <Negative, No Follow-Up Plan Required> [[id number]]
[2019-01-23] MEDS ORDERED: ENOXAPARIN 40 MG/0.4 ML SYR SQ SCH (10:00)
== END 2019-01-22 17:25 | disposition home or self-care (01) ==
LOC: ER 10:47 → MEDSURG 15:33
PROVIDERS: ADMIT Internal Medicine; ATTEND Internal Medicine
DX: N10 Acute pyelonephritis (principal); R50.9 Fever, unspecified; K21.9 Gastro-esophageal reflux disease without esophagitis; Z87.19 Personal history of other diseases of the digestive system; M17.12 Unilateral primary osteoarthritis, left knee; M81.0 Age-related osteoporosis without current pathological fracture; Z87.891 Personal history of nicotine dependence
CPT/HCPCS: 83605 ×2; 83690; 85025; 80076; 86140; 80048; 80053; 81001; 85027; 74176; G0378 ×2; J1885; J2405; J0696 ×2; J2270; 96365; 96374; 96375; 99217; 99220; 99285; C9113; J7030